=== PATIENT | female | born 1935 | race Caucasian/White ===

== ENCOUNTER 2017-04-04 17:58 | Inpatient (IN) | payer MEDICARE, MEDICAID ==
[~2017-04-04] VITALS: Ht 160 cm; Wt 63.2 kg
[2017-04-04] MEDS ORDERED: ONDANSETRON 4 MG/2 ML (SDV) Z0FRAN IVP PRN (18:15)
[2017-04-04] MEDS ORDERED: ACETAMINOPHEN 500 MG TAB (TYLENOL) PO PRN (18:15)
[2017-04-04] MEDS ORDERED: fentaNYL INJECTION 100 MCG/2 ML AMP IVP PRN (18:15)
[2017-04-04] MEDS ORDERED: ALPRAZolam 0.25 MG (XANAX) TAB PO PRN (18:15)
[2017-04-04 20:19] VITALS: BP 134/60
[2017-04-04 21:26] LABS: BASOPHILS % (AUTO) 0 % (0-10); EOSINOPHILS # (AUTO) 0.1 10^3/uL (0.0-0.3); EOSINOPHILS % (AUTO) 1 % (0-10); LYMPHOCYTES # (AUTO) 1.3 X 10^3 (1.0-4.0); LYMPHOCYTES % (AUTO) 15 % (12-44); MEAN CORPUSCULAR HEMOGLOBIN 29 PG (25-34); MEAN CORPUSCULAR HGB CONC 33 G/DL (32-36); MEAN CORPUSCULAR VOLUME 89 FL (80-99); MEAN PLATELET VOLUME 8.6 FL (7.4-10.4); MONOCYTES # (AUTO) 0.8 X 10^3 (0.0-1.0); MONOCYTES % (AUTO) 9 % (0-12); NEUTROPHILS # (AUTO) 6.6 X 10^3 (1.8-7.8); NEUTROPHILS % (AUTO) 75 % (42-75); PLATELET COUNT 332 10^3/uL (130-400); RED BLOOD COUNT 4.03 10^6/uL (4.35-5.85); WHITE BLOOD COUNT 8.8 10^3/uL (4.3-11.0)
--- NOTE | 2017-04-04 21:36 | Consultation ---
History of Present Illness History of Present Illness Patient Consulted On(satish/time) 04/04/17 21:31 Date Seen by Provider: Apr 04, 2017 Time Seen by Provider: 21:31 Reason for Visit: left hip pain History of Present Illness This 81 year old female tripped over a speaker cord at home and fell on the left hip about noon today. She was seen at [facility] and transferred to Dr. Reyes. She was insistent about not having surgery but the nurse practitioner who saw her convinced her to come here for orthopaedic consultation. She denies any other injury. Allergies and Home Medications Allergies Coded Allergies: No Allergy Information Available (Unverified , 04/04/17) Past Jfefyxf-Mglriw-Ezlswo Hx Patient Social History Recent Foreign Travel: No Contact w/Someone Who Travel: No Review of Systems-General Constitutional: no symptoms reported EENTM: no symptoms reported Respiratory: no symptoms reported Cardiovascular: no symptoms reported Gastrointestinal: no symptoms reported Genitourinary: no symptoms reported Musculoskeletal: see HPI Skin: no symptoms reported Psychiatric/Neurological: No Symptoms Reported Assessment/Plan Assessment/Plan Admission Diagnosis/Plan Left impacted femoral neck fracture- I recommended surgery and discussed that usually if the fracture is neglected it will displace and require a hip replacement. She is agreeable to cannulated screw fixation and we will proceed with ORIF of the left hip with cannulated screws in the AM. Results/Procedures Lab Laboratory Tests 04/04/17 21:16 Radiology The x-ray and CT from [place] on a disc show an impacted femoral neck fracture on the left Clinical Quality Measures DVT/VTE Risk/Contraindication: Contraindications-Pharm: Other *list below* Other: surgery planned BESSY SWAIN MD Apr 04, 2017 21:36
[2017-04-04 21:41] LABS: ALANINE AMINOTRANSFERASE 17 U/L (0-55); ALBUMIN 3.7 GM/DL (3.2-4.5); ANION GAP 9 MMOL/L (5-14); ASPARTATE AMINO TRANSFERASE 21 U/L (5-34); BILIRUBIN,TOTAL 0.6 MG/DL (0.1-1.0); BLOOD UREA NITROGEN 13 MG/DL (7-18); BUN/CREATININE RATIO 22; CALCIUM 8.6 MG/DL (8.5-10.1); CARBON DIOXIDE 23 MMOL/L (21-32); CHLORIDE 100 MMOL/L (98-107); GFR ESTIMATED > 60; GLUCOSE 106 MG/DL (70-105); SODIUM 132 MMOL/L (135-145)
[2017-04-04] MEDS: NS IV 1000 ML 1,000 ML IV SCH (21:46)
[2017-04-04] MEDS: HYDROcodone/APAP 5 MG/325 MG (LORTAB) TAB PO PRN (21:50)
[2017-04-05 03:07] VITALS: BP 113/71
[2017-04-05 06:27] LABS: BASOPHILS % (AUTO) 1 % (0-10); EOSINOPHILS # (AUTO) 0.3 10^3/uL (0.0-0.3); EOSINOPHILS % (AUTO) 5 % (0-10); LYMPHOCYTES # (AUTO) 1.6 X 10^3 (1.0-4.0); LYMPHOCYTES % (AUTO) 25 % (12-44); MEAN CORPUSCULAR HEMOGLOBIN 29 PG (25-34); MEAN CORPUSCULAR HGB CONC 32 G/DL (32-36); MEAN CORPUSCULAR VOLUME 90 FL (80-99); MEAN PLATELET VOLUME 9.2 FL (7.4-10.4); MONOCYTES # (AUTO) 0.9 X 10^3 (0.0-1.0); MONOCYTES % (AUTO) 14 % (0-12); NEUTROPHILS # (AUTO) 3.6 X 10^3 (1.8-7.8); NEUTROPHILS % (AUTO) 56 % (42-75); PLATELET COUNT 299 10^3/uL (130-400); RED BLOOD COUNT 3.91 10^6/uL (4.35-5.85); RED CELL DISTRIBUTION WIDTH 13.2 % (10.0-14.5); WHITE BLOOD COUNT 6.5 10^3/uL (4.3-11.0)
[2017-04-05 06:52] LABS: ALANINE AMINOTRANSFERASE 17 U/L (0-55); ALBUMIN 3.5 GM/DL (3.2-4.5); ANION GAP 11 MMOL/L (5-14); ASPARTATE AMINO TRANSFERASE 19 U/L (5-34); BILIRUBIN,TOTAL 0.8 MG/DL (0.1-1.0); BLOOD UREA NITROGEN 12 MG/DL (7-18); BUN/CREATININE RATIO 20; CALCIUM 8.5 MG/DL (8.5-10.1); CARBON DIOXIDE 20 MMOL/L (21-32); CHLORIDE 101 MMOL/L (98-107); CREATININE SERUM 0.59 MG/DL (0.60-1.30); GFR ESTIMATED > 60; GLUCOSE 95 MG/DL (70-105); POTASSIUM 3.9 MMOL/L (3.6-5.0); SODIUM 132 MMOL/L (135-145); TOTAL PROTEIN 6.6 GM/DL (6.4-8.2)
[2017-04-05] MEDS: NS IV 1000 ML 1,000 ML IV SCH ×3 (08:16→20:18)
[2017-04-05] MEDS ORDERED: MIDAZOLAM 2 MG/2 ML (VERSED) VIAL ONE (08:24)
[2017-04-05 09:00] VITALS: BP 137/60
[2017-04-05] MEDS ORDERED: PROPOFOL INJECTION 50 ML IV ONE (09:42)
[2017-04-05] MEDS ORDERED: LACTATED RINGERS 1,000 ML IV ONE (11:50)
[2017-04-05] MEDS ORDERED: BUPIVACAINE 0.5% 30 ML (SENSORCAINE) VIAL ONE (11:52)
[2017-04-05 12:00] VITALS: BP 110/53
[2017-04-05] MEDS ORDERED: morphine INJ 4 MG/ML 1 ML (VIAL/SYRINGE) IV PRN (12:00)
--- NOTE | 2017-04-05 12:12 | History & Physical-Hospitalist ---
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 Antony today. Currently she is complaining that is taking too long for surgery and she is only taking one half of a pain pill for pain since she doesn't want to take too much. Her family is at the bedside and 2 of her 11 children are updated on the plan. Source: patient, RN/MD Exam Limitations: no limitations Date Seen 04/05/17 Time Seen by Provider: 10:00 Attending Physician Bernadette Reyes DO PCP Referring Physician Date of Admission Apr 04, 2017 at 20:47 Home Medications & Allergies Home Medications Reviewed patient Home Medication Reconciliation Form Allergies Allergies Coded Allergies No Allergy Information Available (Unverified04/04/17) Past Wusaipf-Zurwib-Fvrdvl Hx Patient Social History Marrital Status: Alcohol Use: Denies Use Recreational Drug Use: No Smoking Status: Never a Smoker Physical Abuse Screen: No Sexual Abuse: No Recent Foreign Travel: No Contact w/other who traveled: No Recent Hopitalizations: No Recent Infectious Disease Expo: No Seasonal Allergies Seasonal Allergies: No Surgeries HX Surgeries: No Respiratory Hx Respiratory Disorders: No Cardiovascular Hx Cardiovascular Disorders: No Neurological Hx Neurological Disorders: No Reproductive System : No Genitourinary Hx Genitourinary Disorders: No Gastrointestinal Hx Gastrointestinal Disorders: No Musculoskeletal Hx Musculoskeletal Disorders: No Endocrine Hx Endocrine Disorders: No HEENT HX ENT Disorders: No Loss of Vision: Denies Cancer Hx Cancer: No Psychosocial Hx Psychiatric Problems: No Integumentary HX Skin/Integumentary Disorder: No Blood Transfusions Hx Blood Disorders: No Reviewed Nursing Assessment Reviewed/Agree w Nursing PMH: Yes Review of Systems Constitutional: see HPI EENTM: no symptoms reported Respiratory: no symptoms reported Cardiovascular: no symptoms reported Gastrointestinal: no symptoms reported Genitourinary: no symptoms reported Musculoskeletal: joint pain Skin: no symptoms reported Psychiatric/Neurological: No Symptoms Reported All Other Systems Reviewed Negative Unless Noted: Yes Physical Exam Physical Exam Vital Signs Vital Sign - Last 12Hours 04/04/17 20:19 Temp 98.7 Pulse 93 Resp 20 B/P (MAP) 134/60 Pulse Ox 96 O2 Delivery Room Air Capillary Refill : Less Than 3 Seconds General Appearance: No Apparent Distress, WD/WN Eyes: Bilateral Eye Normal Inspection, Bilateral Eye PERRL HEENT: PERRL/EOMI, Normal ENT Inspection, Pharynx Normal Neck: Full Range of Motion, Normal Inspection, Non Tender, Supple Respiratory: Chest Non Tender, Lungs Clear, Normal Breath Sounds, No Accessory Muscle Use, No Respiratory Distress Cardiovascular: Regular Rate, Rhythm, No Edema, No Gallop, No JVD, No Murmur, Normal Peripheral Pulses Gastrointestinal: Normal Bowel Sounds, No Organomegaly, No Pulsatile Mass, Non Tender, Soft Back: Normal Inspection, No CVA Tenderness, No Vertebral Tenderness Extremity: Normal Capillary Refill, Normal Inspection, Normal Range of Motion, Non Tender, No Calf Tenderness, No Pedal Edema Neurologic/Psychiatric: Alert, Oriented x3, No Motor/Sensory Deficits, Normal Mood/Affect Skin: Normal Color, Warm/Dry Lymphatic: No Adenopathy Results Results/Procedures Lab Laboratory Tests 04/04/17 21:16 04/05/17 05:10 Assessment/Plan Admission Diagnosis Assessment: Acute left hip fracture sustained in fall at home Preop hyponatremia Assessment and Plan Plan: Proceed with surgical repair since benefits outweigh risks Clinical Quality Measures DVT/VTE Risk/Contraindication: Risk Factor Score Per Nursin RFS Level Per Nursing on Admit: 2=Moderate Contraindications-Pharm: Other *list below* Other: surgery planned BERNADETTE REYES DO Apr 05, 2017 12:12
[2017-04-05] MEDS ORDERED: CLINDAMYCIN 600 MG/4ML (CLEOCIN) VIAL ONE (12:23)
[2017-04-05] MEDS ORDERED: PHENYLEPHRINE 100 MCG/ML 10 ML (ANESTHESIA) SYR ONE (12:40)
--- NOTE | 2017-04-05 12:53 | Progress Note-Post Operative ---
Post-Operative Progess Note Surgeon (s)/Molded Goods Controls Operator (s) Surgeon BESSY SWAIN MD Molded Goods Controls Operator: FRANCIA BARKLEY PA-C Pre-Operative Diagnosis LEFT IMPACTED FEMORAL NECK FRACTURE Post-Operative Diagnosis SAME Procedure & Operative Findings Date of Procedure 04/05/17 Procedure Performed/Findings CANNULATED SCREW FIXATION LEFT FEMORAL NECK FRACTURE Anesthesia Type SPINAL Estimated Blood Loss Estimated blood loss (mL): 5 ML Specimens/Packing Specimens Removed NONE Packing: NONE BESSY SWAIN MD Apr 05, 2017 12:53
--- NOTE | 2017-04-05 13:07 | Diagnostic Imaging Report ---
EXAMINATION: Left hip, fluoroscopic images. COMPARISON: None. HISTORY: 81-year-old female, left hip screw placement. FINDINGS: 33.9 seconds of fluoroscopic time was utilized for assistance with surgery. There are 3 fixation screws traversing the left intertrochanteric femur and left femoral neck extending into the femoral head. There are limitations of bone detail on fluoroscopic imaging. IMPRESSION: Fluoroscopy for assistance with surgery. Dictated by: Dictated on workstation # [id number]
[2017-04-05] MEDS: ENOXAPARIN 40 MG/0.4 ML (LOVENOX) SYR SC SCH (14:30)
[2017-04-05] MEDS ORDERED: LACTATED RINGERS 1,000 ML IV PRN (14:45)
[2017-04-05 16:51] VITALS: BP 123/68
[2017-04-05] MEDS: HYDROcodone/APAP 5 MG/325 MG (LORTAB) TAB PO PRN ×2 (18:36→22:34)
[2017-04-05 19:37] VITALS: BP 144/62
[2017-04-05] MEDS: CLINDAMYCIN INJECTION 600 MG in NS (IVPB) 50 ML IV SCH (22:11)
[2017-04-06] VITALS (9 sets, daily range): BP systolic 114–166; BP diastolic 58–71
[2017-04-06] MEDS: HYDROcodone/APAP 5 MG/325 MG (LORTAB) TAB PO PRN ×4 (06:11→21:39)
[2017-04-06] MEDS: CLINDAMYCIN INJECTION 600 MG in NS (IVPB) 50 ML IV SCH (06:11)
[2017-04-06] MEDS: NS IV 1000 ML 1,000 ML IV SCH (08:08)
--- NOTE | 2017-04-06 09:44 | Physical Therapy Evaluation ---
PT Evaluation-General Medical Diagnosis Admission Date Apr 04, 2017 at 20:47 Medical Diagnosis: left hip fracture Onset Date: Apr 04, 2017 Therapy Diagnosis Therapy Diagnosis: general debility Height/Weight Height (Feet): 5 Height (Inches): 3.00 Weight (Pounds): 139 Weight (Ounces): 5.0 Precautions Precautions/Isolations: Fall Prevention, Standard Precautions Weight Bear Status Weight Bearing Restriction: Touch Toe Bearing Location Restriction: L LE Referral Physician: Cassia Reason for Referral: Evaluation/Treatment Medical History Additional Medical History has not seen a physician in years Current History fall at home resulting in left hip fracture Reviewed History: Yes Social History Home: Single Level Current Living Status: Alone Entry Into Home: Level Entry has 11 children that will assist at home Prior/Core FIM Prior Level of Function Functional Hammond Measure 0=Not Assessed/NA 4=Minimal Assistance 1=Total Assistance 5=Supervision or Setup 2=Maximal Assistance 6=Modified Hammond 3=Moderate Assistance 7=Complete Hammond Bed Mobility: 7 Transfers (B,C,W/C) (FIM): 7 Gait: 7 PT Evaluation-Current Subjective Patient agrees to PT and OOB activity. Pain Numeric Pain Scale: 5-Moderate Pain Location: Left Location Body Site: Hip Pain Description: Acute Objective Patient Orientation: Normal For Age Problem Solving: Good Attachments: Bledsoe Catheter, IV ROM/Strength ROM Lower Extremities bilateral LE WNL Strenght Lower Extremities right LE 5/5 grossly left LE 3/5 grossly Integumentary/Posture Integumentary refer to nursing notes Bowel Incontinence: No Bladder Incontinence: Bledsoe Cath Posture WNL Neuromuscular (Tone, Coordination, Reflexes) grossly intact Sensory Vision: Functional Hearing: Functional Sensation Right Lower Extremit: Intact Sensation Left Lower Extremity: Intact Transfers Functional Hammond Measure 0=Not Assessed/NA 4=Minimal Assistance 1=Total Assistance 5=Supervision or Setup 2=Maximal Assistance 6=Modified Hammond 3=Moderate Assistance 7=Complete Hammond Transfers (B, C, W/C) (FIM): 5 Scootin Rollin Supine to/from Sit: 5 Sit to/from Stand: 5 bed t/f WC(FIM only if WC use): 5 TTWB left LE with use of FWW and turning toward recliner to sit Gait Mode of Locomotion: Walk Anticipated Mode of Locomotion: Walk Gait (FIM): 1 Distance (FIM): 1=up to 49 ft Distance: 5 steps Gait Level of Assist: 5 Gait Assistive Device: FWW Comments/Gait Description TTWB left LE Balance Sitting Static: Normal Sitting Dynamic: Normal Standing Static: Normal Standing Dynamic: Normal Assessment/Needs 81 y.o. female, will benefit from short term skilled to address functional mobility to safely return to home with family at maximum LOF. Rehab Potential: Good PT Printing Supervisor Goals Printing Supervisor Goals PT Printing Supervisor Goals Time Frame: Apr 10, 2017 Transfers (B,C,W/C) (FIM): 5 Gait (FIM): 1 Gait distance (FIM): 1=up to 49 ft Gait Level of Assist: 5 Gait Assistive Device: FWW PT Plan Treatment/Plan Treatment Plan: Continue Plan of Care Treatment Plan: Bed Mobility, Education, Functional Activity Genna, Functional Strength, Gait, Safety, Therapeutic Exercise, Transfers Treatment Duration: Apr 10, 2017 Frequency: Twice Daily Estimated Hrs Per Day: .5 hour per day Patient and/or Family Agrees t: Yes Safety Risks/Education Patient Education: Gait Training, Safety Issues Teaching Recipient: Patient Teaching Methods: Discussion Response to Teaching: Verbalize Understanding Discharge Recommendations Therapy D/C Recommendations: Home w/ Family Support Equpiment Recommendations-D/C: Front Wheeled Walker Time/GCodes Time In: 825 Time Out: 845 Total Billed Treatment Time: 20 Total Billed Treatment 1 visit EVMod 20 min NICK QUIÑONEZ PT Apr 06, 2017 09:44
[2017-04-06] MEDS ORDERED: MULT-878 PO ×2 (10:12)
[2017-04-06] MEDS ORDERED: ASPI325T32 PO (10:12)
--- NOTE | 2017-04-06 10:44 | Anesthesia-Regional Post-Op ---
Regional Patient Condition Mental Status: Alert, Oriented x3 Circulation: Same as Pre-Op Headache: Absent Sensation: Full Recovery Motor Block: Absent Post Op Complications Complications None Follow Up Care/Instructions Patient Instructions None needed. Anesthesia/Patient Condition Patient is doing well, no complaints, stable vital signs, no apparent adverse anesthesia problems. No complications reported per nursing. TIM ARRIETA CRNA Apr 06, 2017 10:44
--- NOTE | 2017-04-06 11:54 | OPERATIVE REPORT ---
PROCEDURE PHYSICIAN: BESSY SWAIN DATE OF PROCEDURE: 04/05/2017 PREOPERATAIVE DIAGNOSIS: Left impacted femoral neck fracture. POSTOPERATIVE DIAGNOSIS: Left impacted femoral neck fracture. PROCEDURE: Cannulated screw fixation left hip. SURGEON: Cassia ASSISTING: PAC. Jaren Cloth Grader surgeon duties: Patient positioning, retraction, use of internal fixation devices, wound closure, application sterile dressings. Use of drilling assistant is medically indicated. ANESTHESIA: Spinal. BLOOD LOSS: 5 mL. COMPLICATIONS: None. SPECIMENS: None. INDICATIONS: This lady fell yesterday and fractured the left hip. She has impacted fracture and comes in for cannulated screw fixation IMPLANT: Synthes 7.3 mm cannulated screws x3. PROCEDURE IN DETAIL: After informed consent, the patient was transported to the operating room. She was placed on the operating table in the supine position where spinal anesthetic was administered. She was positioned on the fracture table in the supine position with the pubis perineal post. The left foot in traction boot and the right leg in the leg newell. The C-arm was brought in. The reduction appeared to be satisfactory. The fracture is still impacted. The left hip was prepped with ChloraPrep and draped in the sterile fashion. A lateral incision was made over the lateral hip just distal to the greater trochanter and the IT band and vastus lateralis were opened in line with the skin and the vastus lateralis was slightly elevated from the femur laterally and distal to the greater trochanter. Three guide pins were drilled in a triangular pattern through the lateral cortex of the femur up the femoral neck and into the femoral head just short of the articular surface. This was confirmed on the C-arm AP and lateral views. The pins appeared to be in an appropriate position and were fairly parallel. They were measured and the appropriate length 7.3 mm cannulated screws were placed over all 3 pins obtaining good purchase. The pins were removed. Hardcopy AP and lateral views of the hip were taken confirming satisfactory reduction and placement of implants with no penetration of the articular surface. The wound was thoroughly irrigated. The fascia was closed with 0 Vicryl followed by running 2-0 Vicryl and larisa on the skin. Sterile dressing was applied. The patient was taken to the recovery room in stable condition. Job ID: [id number] Dictated Date: 04/05/2017 12:51:50 [employer] Fabric Impregnating Range Tender Date: 04/06/2017 11:46:10 / sherri
--- NOTE | 2017-04-06 13:22 | Progress Note (SOAP) ---
Subjective Date Seen by Provider: Apr 06, 2017 Time Seen by Provider: 07:25 Subjective/Events-last exam Mrs guzman is laying in bed trujillo x 4 with little pain. She is doing well. She denies new symptoms today. Review of Systems General: No Chills, No Night Sweats HEENT: No Head Aches, No Visual Changes Pulmonary: No Dyspnea, No Cough Cardiovascular: No: Chest Pain Gastrointestinal: No: Nausea, Vomiting Musculoskeletal: leg pain Neurological: No: Change in speech, Confusion, Numbness, Weakness Objective Exam Vital Signs Date Time Temp Pulse Resp B/P (MAP) Pulse Ox O2 Delivery O2 Flow Rate FiO2 04/06/17 11:08 97.0 04/06/17 08:00 97.0 73 20 114/58 95 Room Air 04/06/17 08:00 Room Air 04/06/17 04:00 97.1 80 16 145/66 95 Room Air 04/06/17 00:00 98.5 81 16 130/66 93 Room Air 04/05/17 20:00 Room Air 04/05/17 19:37 99.1 89 20 144/62 95 Room Air 04/05/17 17:08 4.00 04/05/17 16:51 98.0 80 20 123/68 100 Nasal Cannula 4.00 04/05/17 16:45 Nasal Cannula 3.00 I & O 04/06/17 07:00 Intake Total 2340 ml Output Total 2150 ml Balance 190 ml Capillary Refill : Less Than 3 Seconds General Appearance: No Apparent Distress, WD/WN Respiratory: No Accessory Muscle Use, No Respiratory Distress Cardiovascular: No Edema, Normal Peripheral Pulses Peripheral Pulses: 2+ Dorsalis Pedis (R), 2+ Left Dors-Pedis (L) Gastrointestinal: non tender, soft Extremity: Normal Capillary Refill, Normal Inspection Neurologic/Psychiatric: Alert, Oriented x3 Skin: Normal Color Results Lab Laboratory Tests 04/06/17 06:30: Hemoglobin 10.8L, Hematocrit 33L Assessment/Plan Assessment/Plan Assess & Plan/Chief Complaint Assessment: left femoral neck fracture s/p fixation with canulated screw Plan: non weight bearing to LLE dvt prophylaxis pain control Clinical Quality Measures DVT/VTE Risk/Contraindication: Risk Factor Score Per Nursin RFS Level Per Nursing on Admit: 2=Moderate Contraindications-Pharm: Other *list below* Other: surgery planned IMANI VAZQUEZ 24, 2017 13:22
[2017-04-06] MEDS: ENOXAPARIN 40 MG/0.4 ML (LOVENOX) SYR SC SCH (13:37)
--- NOTE | 2017-04-06 13:48 | Occupational Therapy Eval ---
OT Evaluation-General/PLF Medical Diagnosis Admission Date Apr 04, 2017 at 20:47 Medical Diagnosis: left hip fracture Onset Date: Apr 04, 2017 Therapy Diagnosis Therapy Diagnosis: decreased self care skills Height/Weight Height (Feet): 5 Height (Inches): 3.00 Weight (Pounds): 139 Weight (Ounces): 5.0 Precautions Precautions/Isolations: Fall Prevention, Standard Precautions Safety Interventions: None Weight Bear Status Weight Bearing Restriction: Touch Toe Bearing Location Restriction: L LE Referral Physician: Cassia Medical History Current History Pt had fall with left hip fracture. S/P ORIF Reviewed History: Yes Social History Home: Single Level Current Living Status: Alone Entry Into Home: Level Entry Pt states she lives alone, but has several children who live nearby. Pt states children will be staying with her and checking on her when she goes home. ADL-Prior Level of Function ADL PLOF Comments Pt reports being independent with ADLs and mobility prior to admission. Does not use any assistive devices for mobility. Pt does not drive. DME/Equipment: Tall Toilet, Tub/Shower DME/Equipment Comments Pt states she does not have a shower chair or bench, but states she will not be getting into the shower when she goes home. Pt not interested in DME for bathing at this time. Drive Self: No OT Current Status Subjective Pt in bed, agrees to treatment. Pt states she is not having any pain, but is tired. Pt states "I did a lot this morning. " Mental Status/Objective Attachments: Bledsoe Catheter, IV Current Glasses/Contacts: Yes (reading) Hearing Aids: No Dentures/Partials: Yes Hand Dominance: Right Upper Extremity ROM Grossly WFL Upper Extremity Coordination Intact Upper Extremity Strength Grossly 4/5 ADL-Treatment ADL-Current Pt supine to sit with minimal assistance for left LE. Pt sat EOB with good balance during UE assessment. Total assist required to don socks. Pt sit to stand with CGA and cues for weightbearing status. Pt able to take sidesteps to HOB with FWW. Pt declined further activity secondary to reports of fatigue from being up earlier today. Education provided regarding role of OT and plan of care. Pt states understanding of education and agrees with plan of care. Pt states "I think I will be fine when I go home." Sit to supine with assist for left LE. Pt in bed with needs met after session. Functional Glenn Measure 0=Not Assessed/NA 4=Minimal Assistance 1=Total Assistance 5=Supervision or Setup 2=Maximal Assistance 6=Modified Glenn 3=Moderate Assistance 7=Complete IndependenceIRFPAI Quality Coding Scale 6 Independent with activity with or without an assistive device 5 Patient requires set up or clean up by helper. Patient completes activity by themselves 4 Supervision or touching assist (CGA). [place] provide cues , steadying assist 3 The helper provides less than half the effort to complete the activity 2 The helper provides more than half the effort to complete the activity 1 Dependent. The helper does all the effort to complete an activity 7 Patient refused to complete or attempt activity 9 The patient did not perform the activity before the current illness or injury 88 Not attempted due to Medical conditions or safety concerns Education OT Patient Education: Rehab process Teaching Recipient: Patient Teaching Methods: Discussion Response to Teaching: Verbalize Understanding OT Short Term Goals Short Term Goals 1=Demonstrate adherence to instructed precautions during ADL tasks. 2=Patient will verbalize/demonstrate understanding of assistive devices/ modifications for ADL. 3=Patient will improve strength/tolerance for activity to enable patient to perform ADL's. OT Retirement Goals X Ray Technician Goals Time Frame: Apr 20, 2017 Eating (FIM): 6 Grooming(FIM): 6 Bathing(FIM): 5 Upper Body Dressing(FIM): 5 Lower Body Dressing(FIM): 5 Toileting(FIM): 6 Toilet/Commode Transfer(FIM): 6 Additional Goals: 1-Demonstrate ADL Tasks, 2-Verbalize Understanding, 3- ImproveStrength/Genna 1=Demonstrate adherence to instructed precautions during ADL tasks. 2=Patient will verbalize/demonstrate understanding of assistive devices/ modifications for ADL. 3=Patient will improve strength/tolerance for activity to enable patient to perform ADL's. OT Education/Plan Problem List/Assessment Assessment: Decreased Activ Tolerance, Decreased UE Strength, Dependent Transfers, Impaired Self-Care Skills Pt admitted with left hip fracture, s/p surgical intervention. Pt to benefit from skilled OT intervention for ADL training, transfers, strengthening, adaptive equipment education as needed, and home safety education to maximize level of function and allow safe return home with family support. Discharge Recommendations Plan/Recommendations: Continue POC Treatment Plan/Plan of Care Treatment,Training & Education: Yes Patient would benefit from OT for education, treatment and training to promote independence in ADL's, mobility, safety and/or upper extremity function for ADL' s. Plan of Care: ADL Retraining, Functional Mobility, UE Funct Exercise/Act Treatment Duration: Apr 20, 2017 Frequency: 5 times per week Estimated Hrs Per Day: .5 hour per day Agreement: Yes Rehab Potential: Good Time/GCodes Start Time: 13:11 Stop Time: 13:34 Total Time Billed (hr/min): 23 Billed Treatment Time 1 visit, KEGAAN(23minutes) LUCIA HANLEY OT Apr 06, 2017 13:48
--- NOTE | 2017-04-06 14:01 | Progress Note-Hospitalist ---
Standard Progress Note Progress Notes/Assess & Plan Date Seen 04/06/17 Time Seen by Provider: 13:56 Diagnosis Assessment: Acute left hip fracture sustained in fall at home Preop hyponatremia Assess & Plan/Chief Complaint The patient is an 81-year-old white female who reports she was hurrying to get to her garden at home. She tripped and fell suffering a left hip fracture. That was repaired by Dr. Antony on 04/05. She is very dedicated to the proposition of going directly from inpatient. She states that she has 11 children. They are able to participate in her care. A daughter lives with her and a son would be available in the evening after getting off from work. She has just started physical therapy. She would be willing to do home health physical therapy. Physical exam: We have a spunky elderly female. Lungs are clear to auscultation. CV is regular with a grade 2 systolic murmur heard at the right second intercostal space and down the left sternal border. Impression: Left hip fracture Day 1 postop. 2.modest hyponatremia. Plan: Physical therapy. Discharge planning Labs Laboratory Tests 04/04/17 21:16 04/05/17 05:10 04/06/17 06:30 CINDY ALEMAN MD Apr 06, 2017 14:01
--- NOTE | 2017-04-06 14:45 | Physical Therapy Daily Note ---
PT Daily Note-Current Subjective Patient agrees to PT. No c/o at this time. Pain Numeric Pain Scale: 5-Moderate Pain Location: Left Location Body Site: Hip Pain Description: Acute Mental Status Patient Orientation: Normal For Age Attachments: Bledsoe Catheter, IV Transfers Functional [place] Measure 0=Not Assessed/NA 4=Minimal Assistance 1=Total Assistance 5=Supervision or Setup 2=Maximal Assistance 6=Modified [place] 3=Moderate Assistance 7=Complete IndependenceIRFPAI Quality Coding Scale 6 Independent with activity with or without an assistive device 5 Patient requires set up or clean up by helper. Patient completes activity by themselves 4 Supervision or touching assist (CGA). [place] provide cues , steadying assist 3 The helper provides less than half the effort to complete the activity 2 The helper provides more than half the effort to complete the activity 1 Dependent. The helper does all the effort to complete an activity 7 Patient refused to complete or attempt activity 9 The patient did not perform the activity before the current illness or injury 88 Not attempted due to Medical conditions or safety concerns Transfers (B, C, W/C) (FIM): 5 Scootin Rollin Supine to/from Sit: 5 Sit to/from Stand: 5 Weight Bearing Weight Bearing Restriction: Touch Toe Bearing Location Restriction: L LE Gait Training Gait (FIM): 1 Distance (FIM): 1=up to 49 ft Distance: 30' Gait Level of Assist: 5 Gait Persons Needed: 1 Gait Assistive Device: FWW Patient is able to maintain TTWB left LE without difficulty Exercises Supine Ex: Ankle pumps, Quad Set, Heel Slides Supine Reps: 10 Seated Therapy Exercises: Ankle pumps, Long arc quads Seated Reps: 10 Assessment Patient progressing with exercise and ambulation. Patient will dismiss to home with family this week. PT to continue to address goals. PT Assisted Goals Sales Enablement Analyst Goals PT Sales Enablement Analyst Goals Time Frame: Apr 10, 2017 Transfers (B,C,W/C) (FIM): 5 Gait (FIM): 1 Gait distance (FIM): 1=up to 49 ft Gait Level of Assist: 5 Gait Assistive Device: FWW PT Plan Treatment/Plan Treatment Plan: Continue Plan of Care Treatment Plan: Bed Mobility, Education, Functional Activity Genna, Functional Strength, Gait, Safety, Therapeutic Exercise, Transfers Treatment Duration: Apr 10, 2017 Frequency: Twice Daily Estimated Hrs Per Day: .5 hour per day Patient and/or Family Agrees t: Yes Time/GCodes Time In: 1410 Time Out: 1433 Total Billed Treatment Time: 23 Total Billed Treatment 1 visit GT 8 min EX 15 min NCIK QUIÑONEZ PT Apr 06, 2017 14:45
[2017-04-07 03:10] VITALS: BP 121/64
[2017-04-07] MEDS: HYDROcodone/APAP 5 MG/325 MG (LORTAB) TAB PO PRN ×2 (04:34→11:30)
[2017-04-07 08:00] VITALS: BP 141/66
--- NOTE | 2017-04-07 09:23 | Physical Therapy Daily Note ---
PT Daily Note-Current Subjective Patient agrees to PT. Pain Numeric Pain Scale: 5-Moderate Pain Location: Left Location Body Site: Hip Pain Description: Acute Mental Status Patient Orientation: Normal For Age Attachments: Bledsoe Catheter Transfers Functional [place] Measure 0=Not Assessed/NA 4=Minimal Assistance 1=Total Assistance 5=Supervision or Setup 2=Maximal Assistance 6=Modified [place] 3=Moderate Assistance 7=Complete IndependenceIRFPAI Quality Coding Scale 6 Independent with activity with or without an assistive device 5 Patient requires set up or clean up by helper. Patient completes activity by themselves 4 Supervision or touching assist (CGA). [place] provide cues , steadying assist 3 The helper provides less than half the effort to complete the activity 2 The helper provides more than half the effort to complete the activity 1 Dependent. The helper does all the effort to complete an activity 7 Patient refused to complete or attempt activity 9 The patient did not perform the activity before the current illness or injury 88 Not attempted due to Medical conditions or safety concerns Transfers (B, C, W/C) (FIM): 5 Scootin Rollin Supine to/from Sit: 5 Sit to/from Stand: 5 Weight Bearing Weight Bearing Restriction: Touch Toe Bearing Location Restriction: L LE Gait Training Gait (FIM): 1 Distance (FIM): 1=up to 49 ft Distance: 45' Gait Level of Assist: 5 Gait Assistive Device: FWW steady, step to gait sequence Exercises Supine Ex: Ankle pumps, Quad Set, Heel Slides Supine Reps: 10 Seated Therapy Exercises: Ankle pumps, Long arc quads Seated Reps: 15 Assessment Current Status: Excellent Progress Patient tolerated treatment well and is up in recliner with needs met. Patient performs exercises independently PRN and is highly motivated with progress. Plan dismissal to home with family this week. PT Snf Goals Snf Goals PT Snf Goals Time Frame: Apr 10, 2017 Transfers (B,C,W/C) (FIM): 5 Gait (FIM): 1 Gait distance (FIM): 1=up to 49 ft Gait Level of Assist: 5 Gait Assistive Device: FWW PT Plan Treatment/Plan Treatment Plan: Continue Plan of Care Treatment Plan: Bed Mobility, Education, Functional Activity Genna, Functional Strength, Gait, Safety, Therapeutic Exercise, Transfers Treatment Duration: Apr 10, 2017 Frequency: Twice Daily Estimated Hrs Per Day: .5 hour per day Patient and/or Family Agrees t: Yes Time/GCodes Time In: 846 Time Out: 909 Total Billed Treatment Time: 23 Total Billed Treatment 1 visit GT 15 min EX 8 min NICK QUIÑONEZ PT Apr 07, 2017 09:23
--- NOTE | 2017-04-07 11:33 | Progress Note-Hospitalist ---
Standard Progress Note Progress Notes/Assess & Plan Date Seen 04/07/17 Time Seen by Provider: 11:29 Diagnosis Assessment: Acute left hip fracture sustained in fall at home Preop hyponatremia Assess & Plan/Chief Complaint The patient was sitting up on the side of the bed when I came into the room. She reports feeling generally well. Physical therapy states that she is doing extremely well. Yesterday she was most enthusiastic about the prospect of going home today. Today she is much less confident her children all work and there would be hours of time in which no one would be home with her. Accordingly we will evaluate are other possibilities. Physical exam: The patient is bright and alert. Lungs are clear to auscultation. CV is regular without murmur. Extremities show no pedal edema. Impression: Left hip fracture postoperative day 3. Plan: Explore options for continuing PT. Labs Laboratory Tests 04/06/17 06:30 CINDY ALEMAN MD Apr 07, 2017 11:33
--- NOTE | 2017-04-07 12:52 | Progress Note-Standard ---
Standard Progress Note Progress Notes/Assess & Plan Date Seen by Provider: Apr 07, 2017 Time Seen by Provider: 12:50 Progress/Assessment & Plan Postop day 2 cannulated screws left hip Doing well Pain is well controlled. She is getting up with PT and doing well with that. Exam-- minimal drainage. Incision intact Diagnosis: left femoral neck fracture Plan: Continue PT, and either DC to home when better or consider rehab I will sign off and follow up in the office in 2 weeks for staple removal Final Diagnosis Left femoral neck fracture BESSY SWAIN MD Apr 07, 2017 12:52
[2017-04-09] MEDS ORDERED: HYDR-3812 PO ×2 (11:49)
--- NOTE | 2017-04-29 13:56 | Discharge Summary-Hospitalist ---
Diagnosis/Chief Complaint Date of Admission Apr 04, 2017 at 20:47 Date of Discharge Apr 07, 2017 at 12:50 Discharge Date: Apr 07, 2017 Admission Diagnosis Assessment: Acute left hip fracture sustained in fall at home Preop hyponatremia Discharge Diagnosis 1.fracture left hip with operative repair. 2.hyponatremia on admission, corrected Discharge Summary Discharge Physical Examination Allergies: Coded Allergies: No Allergy Information Available (Unverified , 04/04/17) Hospital Course The patient is an 81-year-old white female who fell at her home. After she arrived at the [place] emergency room she was found to have a left hip fracture and was transferred here for operative repair. She was also noted to have hyponatremia. She successfully completed repair on 04/05. Her hospital course was slow but satisfactory. In order that she might be reasonably likely of success at home, and she insisted on going home, she was transferred to swing bed for several more days of physical therapy. Labs (last 24 hrs) Microbiology 04/05/17 MRSA Screen - Final, Complete MRSA not isolated Discharge Home Medications: Active Scripts Active Hydrocodon -Acetaminophen 5-325 (Hydrocodone/Acetaminophen) 1 Each Tablet 1 Tab PO Q4H PRN Reported Aspirin EC (Aspirin) 325 Mg Tablet. 325 Mg PO DAILY PRN Instructions to patient/family Please see electonic discharge instructions given to patient. Clinical Quality Measures DVT/VTE Risk/Contraindication: Risk Factor Score Per Nursin RFS Level Per Nursing on Admit: 2=Moderate Contraindications-Pharm: Other *list below* Other: surgery planned CINDY ALEMAN MD Apr 29, 2017 13:56
== END 2017-04-07 12:50 | disposition swing bed (61) | DRG 481 ==
LOC: 4TH 20:47
PROVIDERS: ADMIT Internal Medicine; ATTEND Internal Medicine
PROC: 0QS704Z Reposition Left Upper Femur with Internal Fixation Device, Open Approach (ICD-10-PCS; principal; 2017-04-05 12:05)
DX: S72.002A Fracture of unspecified part of neck of left femur, initial encounter for closed fracture (principal); E87.1 Hypo-osmolality and hyponatremia; W22.8XXA Striking against or struck by other objects, initial encounter; Y92.019 Unspecified place in single-family (private) house as the place of occurrence of the external cause
CPT/HCPCS: 36415; 80053; 85014; 85018; 85025; 87081; 94664

== ENCOUNTER 2017-04-07 12:40 | Inpatient (IN) | payer MEDICARE ==
[~2017-04-07] VITALS: Ht 160 cm; Wt 63.2 kg
[~2017-04-07 12:40] MED LIST: ASPI325T32 PO; MULT-878 PO
[2017-04-07 12:55] VITALS: BP 125/67
[2017-04-07] MEDS ORDERED: ALPRAZolam 0.25 MG (XANAX) TAB PO PRN (13:00)
[2017-04-07] MEDS ORDERED: ACETAMINOPHEN 500 MG TAB (TYLENOL) PO PRN (13:00)
[2017-04-07] MEDS: ENOXAPARIN 40 MG/0.4 ML (LOVENOX) SYR SC SCH (13:45)
--- NOTE | 2017-04-07 14:15 | Physical Therapy Evaluation ---
PT Evaluation-General Medical Diagnosis Admission Date Apr 07, 2017 at 12:51 Medical Diagnosis: left hip fracture Onset Date: Apr 04, 2017 Therapy Diagnosis Therapy Diagnosis: generalized weakness/debility Height/Weight Height (Feet): 5 Height (Inches): 3.00 Weight (Pounds): 139 Weight (Ounces): 5.0 Weight Bear Status Weight Bearing Restriction: Touch Toe Bearing Location Restriction: L LE Referral Physician: Mattie Reason for Referral: Evaluation/Treatment Medical History Additional Medical History has not been to a physician for years. Current History SWB status s/p fall at home Reviewed History: Yes Social History Home: Single Level Current Living Status: Alone Entry Into Home: Level Entry Prior/Core FIM Prior Level of Function Functional [place] Measure 0=Not Assessed/NA 4=Minimal Assistance 1=Total Assistance 5=Supervision or Setup 2=Maximal Assistance 6=Modified [place] 3=Moderate Assistance 7=Complete [place] Bed Mobility: 7 Transfers (B,C,W/C) (FIM): 7 Gait: 7 PT Evaluation-Current Subjective Patient is very agreeable to participate with PT. Pain Numeric Pain Scale: 5-Moderate Pain Location: Left Location Body Site: Hip Pain Description: Acute Pt/Family Goals return to home with family support Objective Patient Orientation: Normal For Age Problem Solving: Good ROM/Strength ROM Lower Extremities bilateral LE WNL Strenght Lower Extremities bilateral LE WNL Integumentary/Posture Integumentary refer to nursing notes Bowel Incontinence: No Bladder Incontinence: No Posture WNL Neuromuscular (Tone, Coordination, Reflexes) grossly intact Sensory Vision: Functional Hearing: Functional Sensation Right Lower Extremit: Intact Sensation Left Lower Extremity: Intact Transfers Functional [place] Measure 0=Not Assessed/NA 4=Minimal Assistance 1=Total Assistance 5=Supervision or Setup 2=Maximal Assistance 6=Modified [place] 3=Moderate Assistance 7=Complete [place] Transfers (B, C, W/C) (FIM): 5 Scootin Rollin Supine to/from Sit: 5 Sit to/from Stand: 5 Sit to Lying (QC): 5 Lying to Sitting/Side of Bed(Q: 5 Sit to Stand (QC): 5 Chair/Rqi-gz-Jyajj Xfer(QC): 5 Gait Does the Patient Walk?: Yes Mode of Locomotion: Walk Anticipated Mode of Locomotion: Walk Gait (FIM): 5 Distance (FIM): 3=150 ft Distance: 150' Walk 50 ft with 2 Turns(QC): 5 Walk 150 ft (QC): 5 Gait Level of Assist: 5 Gait Assistive Device: FWW Comments/Gait Description Patient is able to comply with TTWB left LE with out difficulty Wheelchair Training Does the Pt Use a Wheelchair?: No Balance Sitting Static: Normal Sitting Dynamic: Normal Standing Static: Normal Standing Dynamic: Normal Treatment bilateral LE exercises in supine and sit 10 reps each AP, QS, Abd/add; LAQ to increase strength and mobility to return to home safely Assessment/Needs 81 y.o. female, will benefit from short term skilled PT to address functional strength and mobility to improve current LOF and to safely return to home with family and home health intervention at maximum LOF. Rehab Potential: Good PT Senior Care Goals Rotary Furnace Tender Goals PT Rotary Furnace Tender Goals Time Frame: Apr 14, 2017 Transfers (B,C,W/C) (FIM): 6 Sit to Lying (QC): 5 Lying-Sitting on Side/Bed(QC): 5 Sit to Stand (QC): 5 Rollin Chair/Stp-lr-Tyuxj Xfer(QC): 5 Does the Patient Walk: Yes Gait (FIM): 6 Gait distance (FIM): 3=150 ft Walk 50ft with 2 Turns (QC): 5 Walk 150 ft (QC): 5 Gait Level of Assist: 6 Gait Assistive Device: FWW PT Plan Treatment/Plan Treatment Plan: Continue Plan of Care Treatment Plan: Bed Mobility, Education, Functional Activity Genna, Functional Strength, Gait, Safety, Therapeutic Exercise, Transfers Treatment Duration: Apr 14, 2017 Frequency: Twice Daily (M- and 1 time on Thursday) Estimated Hrs Per Day: .5 hour per day Patient and/or Family Agrees t: Yes Safety Risks/Education Patient Education: Safety Issues Teaching Recipient: Patient Teaching Methods: Discussion Response to Teaching: Verbalize Understanding Discharge Recommendations Therapy D/C Recommendations: Home w/ Family Support, Physical Therapy Home Care Time/GCodes Time In: 1315 Time Out: 1340 Total Billed Treatment Time: 25 Total Billed Treatment 1 visit EVLowC 10 min EX 15 min NICK QUIÑONEZ PT Apr 07, 2017 14:15
--- NOTE | 2017-04-07 15:26 | Occupational Therapy Eval ---
OT Evaluation-General/PLF Medical Diagnosis Admission Date Apr 07, 2017 at 12:51 Medical Diagnosis: left hip fracture Onset Date: Apr 04, 2017 Therapy Diagnosis Therapy Diagnosis: decr self care skills Height/Weight Height (Feet): 5 Height (Inches): 3.00 Weight (Pounds): 139 Weight (Ounces): 5.0 Precautions Precautions/Isolations: Fall Prevention, Standard Precautions Weight Bear Status Weight Bearing Restriction: Touch Toe Bearing Location Restriction: L LEONARDO Referral Physician: Mattie Referral Reason: Evaluation/Treatment Medical History Additional Medical History Pt has not seen a physician in many years. Current History Caught foot in speaker wire at home and fell. L hip fx, with ORIF on 04-05-17 Reviewed History: Yes Social History Home: Single Level Current Living Status: Alone Entry Into Home: Level Entry ADL-Prior Level of Function ADL PLOF Comments Pt reported that she had been able to manage all of her basic self care needs. She has several children that live nearby. Children will be staying with her after discharge DME/Equipment: Tall Toilet, Tub/Shower Pt stated that she will not be getting in and out of the tub for a long time. 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 Drive Self: No OT Current Status Subjective Pt seen in room, up in bed, agreeable to OT but not to getting up, Pain reported 0/10 Appearance Alert, cooperative Mental Status/Objective Attachments: IV Current Glasses/Contacts: Yes Hearing Aids: No Dentures/Partials: Yes Hand Dominance: Right Upper Extremity ROM Grossly WFL bilat Upper Extremity Strength grossly 4/5 bilat ADL-Treatment ADL-Current Pt reported she had a shower this morning but was not able to state how much help she had Functional [place] Measure 0=Not Assessed/NA 4=Minimal Assistance 1=Total Assistance 5=Supervision or Setup 2=Maximal Assistance 6=Modified [place] 3=Moderate Assistance 7=Complete IndependenceIRFPAI Quality Coding Scale 6 Independent with activity with or without an assistive device 5 Patient requires set up or clean up by helper. Patient completes activity by themselves 4 Supervision or touching assist (CGA). [place] provide cues , steadying assist 3 The helper provides less than half the effort to complete the activity 2 The helper provides more than half the effort to complete the activity 1 Dependent. The helper does all the effort to complete an activity 7 Patient refused to complete or attempt activity 9 The patient did not perform the activity before the current illness or injury 88 Not attempted due to Medical conditions or safety concerns Eating (FIM): 6 (per pt report) Eating (QC): 6 (per patient report) Grooming (FIM): 5 (SBA at sink to rinse dentures) Oral Hygiene (QC): 4 (SBA at sink to rinse dentures) Toileting (FIM): 5 (per pt report. "I don't take myself to the bathroom") Toileting Hygiene (QC): 4 (SBA per pt report) Transfers (B, C, W/C) (FIM): 5 (per PT eval) Toilet/Commode Transfer (FIM): 5 (SBA, per pt report. tall toilet, grab bar) Toilet Transfer (QC): 4 (SBA per pt report) Education OT Patient Education: Purpose of tx/functional activities, Rehab process, Use of adapted equipment Teaching Recipient: Patient Teaching Methods: Discussion Response to Teaching: Verbalize Understanding OT Advertising Campaign Manager Goals Skilled Nursing Goals Time Frame: Apr 14, 2017 Eating (FIM): 6 Eating (QC): 6 Groomin Oral Hygiene (QC): 6 Upper Body Dressing(FIM): 5 Lower Body Dressing(FIM): 5 Toileting(FIM): 6 Toileting Hygiene (QC): 6 Toilet/Commode Transfer(FIM): 6 Toilet/Commode Transfer (QC): 6 Additional Goals: 1-Demonstrate ADL Tasks, 2-Verbalize Understanding, 3- ImproveStrength/Genna 1=Demonstrate adherence to instructed precautions during ADL tasks. 2=Patient will verbalize/demonstrate understanding of assistive devices/ modifications for ADL. 3=Patient will improve strength/tolerance for activity to enable patient to perform ADL's. OT Education/Plan Problem List/Assessment Assessment: Decreased UE Strength, Impaired Self-Care Skills Pt would benefit from skilled OT to increase her independence in basic self care to allow her to safely return to her home, to live with family support Discharge Recommendations Plan/Recommendations: Continue POC Therapy D/C Recommendations: Occupational Therapy Home Care Target Placement Pt stated that she is going home on Thursday Treatment Plan/Plan of Care Treatment,Training & Education: Yes Patient would benefit from OT for education, treatment and training to promote independence in ADL's, mobility, safety and/or upper extremity function for ADL' s. Plan of Care: ADL Retraining, UE Funct Exercise/Act Treatment Duration: Apr 14, 2017 Frequency: Daily Estimated Hrs Per Day: .5 hour per day Agreement: Yes Rehab Potential: Good Time/GCodes Start Time: 15:00 Stop Time: 15:15 Total Time Billed (hr/min): 15 Billed Treatment Time visit, 15 minutes evaluation low intensity VALENTIN GRIFFIN OT Apr 07, 2017 15:25
[2017-04-07 18:00] VITALS: BP 146/67
[2017-04-07] MEDS: HYDROcodone/APAP 5 MG/325 MG (LORTAB) TAB PO PRN (18:13)
[2017-04-07 19:15] VITALS: BP 146/67
[2017-04-08] MEDS: HYDROcodone/APAP 5 MG/325 MG (LORTAB) TAB PO PRN ×3 (01:38→20:41)
[2017-04-08 06:00] VITALS: BP 148/63
--- NOTE | 2017-04-08 11:28 | Physical Therapy Daily Note ---
PT Daily Note-Current Subjective Patient in bed pre tx, agrees to PT, has pain of 3/10 when up but none at rest. Appearance Patient BTB post tx with nurse call, phone, tray, all needs met. Mental Status Patient Orientation: Normal For Age Transfers Functional [place] Measure 0=Not Assessed/NA 4=Minimal Assistance 1=Total Assistance 5=Supervision or Setup 2=Maximal Assistance 6=Modified [place] 3=Moderate Assistance 7=Complete IndependenceIRFPAI Quality Coding Scale 6 Independent with activity with or without an assistive device 5 Patient requires set up or clean up by helper. Patient completes activity by themselves 4 Supervision or touching assist (CGA). [place] provide cues , steadying assist 3 The helper provides less than half the effort to complete the activity 2 The helper provides more than half the effort to complete the activity 1 Dependent. The helper does all the effort to complete an activity 7 Patient refused to complete or attempt activity 9 The patient did not perform the activity before the current illness or injury 88 Not attempted due to Medical conditions or safety concerns Transfers (B, C, W/C) (FIM): 4 Scootin Supine to/from Sit: 4 Sit to/from Stand: 5 Patient needs min assist for supine to sit Weight Bearing Weight Bearing Restriction: Touch Toe Bearing Location Restriction: L LE Gait Training Gait (FIM): 2 Distance: 100' Gait Level of Assist: 5 Gait Persons Needed: 1 Gait Assistive Device: FWW Patient states she has been putting maybe a little more than toe touch weight on her left leg. Exercises Supine Ex: Ankle pumps, Quad Set, Glut sets, Heel Slides, Straight leg raise Supine Reps: 10 Treatments bed mobility and transfers, ambulation, functional strengthening Assessment Current Status: Fair Progress improving mobility PT Emr Implementation Specialist Goals [facility] Goals PT [facility] Goals Time Frame: Apr 14, 2017 Transfers (B,C,W/C) (FIM): 6 Sit to Lying (QC): 5 Lying-Sitting on Side/Bed(QC): 5 Sit to Stand (QC): 5 Rollin Chair/Kju-of-Ptwbf Xfer(QC): 5 Does the Patient Walk: Yes Gait (FIM): 6 Gait distance (FIM): 3=150 ft Walk 50ft with 2 Turns (QC): 5 Walk 150 ft (QC): 5 Gait Level of Assist: 6 Gait Assistive Device: FWW PT Plan Problem List Problem List: Activity Tolerance, Functional Strength, Safety, Balance, Gait, Transfer, Bed Mobility, ROM Treatment/Plan Treatment Plan: Continue Plan of Care Treatment Plan: Bed Mobility, Education, Functional Activity Genna, Functional Strength, Gait, Safety, Therapeutic Exercise, Transfers Treatment Duration: Apr 14, 2017 Frequency: Twice Daily (M- and 1 time on Thursday) Estimated Hrs Per Day: .5 hour per day Patient and/or Family Agrees t: Yes Safety Risks/Education Patient Education: Gait Training, Transfer Techniques, Correct Positioning, Safety Issues Teaching Recipient: Patient Teaching Methods: Demonstration, Discussion Response to Teaching: Reinforcement Needed Time/GCodes Time In: 1105 Time Out: 1125 Total Billed Treatment Time: 20 Total Billed Treatment 1 visit GT 20' BRIE GENAO PT Apr 08, 2017 11:28
--- NOTE | 2017-04-08 14:25 | Occupational Ther Daily Note ---
OT Current Status-Daily Note Subjective Pt in bed, agrees to treatment. Pt reports fatigue this am. Mental Status/Objective Functional [place] Measure 0=Not Assessed/NA 4=Minimal Assistance 1=Total Assistance 5=Supervision or Setup 2=Maximal Assistance 6=Modified [place] 3=Moderate Assistance 7=Complete [place] ADL-Treatment Pt states she has just finished showering with assist from nursing. Pt supine to sit with minimal assistance for left LE. Education provided regarding use of adaptive equipment for LE dressing. Pt demonstrated ability to don socks with minimal assistance using sock aid. Pt also educated on use of molecular geneticist for LE ADLs, but declined to attempt at this time. Pt states she is fatigued and needs to return to bed. Sit to supine with assist for left LE. Pt able to scoot to HOB without assistance. Pt resting in bed with needs met after session. Functional [place] Measure 0=Not Assessed/NA 4=Minimal Assistance 1=Total Assistance 5=Supervision or Setup 2=Maximal Assistance 6=Modified [place] 3=Moderate Assistance 7=Complete IndependenceIRFPAI Quality Coding Scale 6 Independent with activity with or without an assistive device 5 Patient requires set up or clean up by helper. Patient completes activity by themselves 4 Supervision or touching assist (CGA). [place] provide cues , steadying assist 3 The helper provides less than half the effort to complete the activity 2 The helper provides more than half the effort to complete the activity 1 Dependent. The helper does all the effort to complete an activity 7 Patient refused to complete or attempt activity 9 The patient did not perform the activity before the current illness or injury 88 Not attempted due to Medical conditions or safety concerns OT Short Term Goals Short Term Goals 1=Demonstrate adherence to instructed precautions during ADL tasks. 2=Patient will verbalize/demonstrate understanding of assistive devices/ modifications for ADL. 3=Patient will improve strength/tolerance for activity to enable patient to perform ADL's. OT Fpc Goals Winding Department Supervisor Goals Time Frame: Apr 14, 2017 Eating (FIM): 6 Eating (QC): 6 Groomin Oral Hygiene (QC): 6 Upper Body Dressing(FIM): 5 Lower Body Dressing(FIM): 5 Toileting(FIM): 6 Toileting Hygiene (QC): 6 Toilet/Commode Transfer(FIM): 6 Toilet/Commode Transfer (QC): 6 Additional Goals: 1-Demonstrate ADL Tasks, 2-Verbalize Understanding, 3- ImproveStrength/Genna 1=Demonstrate adherence to instructed precautions during ADL tasks. 2=Patient will verbalize/demonstrate understanding of assistive devices/ modifications for ADL. 3=Patient will improve strength/tolerance for activity to enable patient to perform ADL's. OT Education/Plan Problem List/Assessment Pt would benefit from skilled OT to increase her independence in basic self care to allow her to safely return to her home, to live with family support Discharge Recommendations Plan/Recommendations: Continue POC Treatment Plan/Plan of Care Patient would benefit from OT for education, treatment and training to promote independence in ADL's, mobility, safety and/or upper extremity function for ADL' s. Plan of Care: ADL Retraining, UE Funct Exercise/Act Treatment Duration: Apr 14, 2017 Frequency: Daily Estimated Hrs Per Day: .5 hour per day Agreement: Yes Rehab Potential: Good Time/GCodes Start Time: 10:12 Stop Time: 10:31 Total Time Billed (hr/min): 19 Billed Treatment Time 1 visit, ADL(19minutes) LUCIA HANLEY OT Apr 08, 2017 14:25
[2017-04-08] MEDS: ENOXAPARIN 40 MG/0.4 ML (LOVENOX) SYR SC SCH (14:44)
--- NOTE | 2017-04-08 16:15 | Physical Therapy Daily Note ---
PT Daily Note-Current Subjective Patient in bed pre tx, agrees to PT, states she has pain of 4/10 in left hip. Appearance Patient in bed post tx with nurse call, phone, tray, all needs met. Mental Status Patient Orientation: Normal For Age Transfers Functional [place] Measure 0=Not Assessed/NA 4=Minimal Assistance 1=Total Assistance 5=Supervision or Setup 2=Maximal Assistance 6=Modified [place] 3=Moderate Assistance 7=Complete IndependenceIRFPAI Quality Coding Scale 6 Independent with activity with or without an assistive device 5 Patient requires set up or clean up by helper. Patient completes activity by themselves 4 Supervision or touching assist (CGA). [place] provide cues , steadying assist 3 The helper provides less than half the effort to complete the activity 2 The helper provides more than half the effort to complete the activity 1 Dependent. The helper does all the effort to complete an activity 7 Patient refused to complete or attempt activity 9 The patient did not perform the activity before the current illness or injury 88 Not attempted due to Medical conditions or safety concerns Transfers (B, C, W/C) (FIM): 4 Scootin Supine to/from Sit: 4 Sit to/from Stand: 5 Patient needs min assist getting left leg into and out of bed. Gait Training Gait (FIM): 5 Distance: 160' Gait Level of Assist: 5 Gait Persons Needed: 1 Gait Assistive Device: FWW Slow, antalgic, stiff left leg, decreased knee flexion during ambulation Treatments bed mobility and transfers, ambulation Assessment Current Status: Fair Progress improving mobility and ambulation PT Senior Living Goals Harness And Bag Inspector Goals PT Senior Living Goals Time Frame: Apr 14, 2017 Transfers (B,C,W/C) (FIM): 6 Sit to Lying (QC): 5 Lying-Sitting on Side/Bed(QC): 5 Sit to Stand (QC): 5 Rollin Chair/Fkm-rb-Fwocs Xfer(QC): 5 Does the Patient Walk: Yes Gait (FIM): 6 Gait distance (FIM): 3=150 ft Walk 50ft with 2 Turns (QC): 5 Walk 150 ft (QC): 5 Gait Level of Assist: 6 Gait Assistive Device: FWW PT Plan Problem List Problem List: Activity Tolerance, Functional Strength, Safety, Balance, Gait, Transfer, Bed Mobility, ROM Treatment/Plan Treatment Plan: Continue Plan of Care Treatment Plan: Bed Mobility, Education, Functional Activity Genna, Functional Strength, Gait, Safety, Therapeutic Exercise, Transfers Treatment Duration: Apr 14, 2017 Frequency: Twice Daily (M-F and 1 time on Thursday) Estimated Hrs Per Day: .5 hour per day Patient and/or Family Agrees t: Yes Safety Risks/Education Patient Education: Gait Training, Transfer Techniques, Correct Positioning, Safety Issues Teaching Recipient: Patient Teaching Methods: Demonstration, Discussion Response to Teaching: Reinforcement Needed Time/GCodes Time In: 1555 Time Out: 1610 Total Billed Treatment Time: 15 Total Billed Treatment 1 visit GT 15' BRIE GENAO PT Apr 08, 2017 16:15
[2017-04-08 17:27] VITALS: BP 136/65
[2017-04-09 06:00] VITALS: BP 151/66
--- NOTE | 2017-04-09 10:00 | Physical Therapy Daily Note ---
PT Daily Note-Current Subjective Patient just complete with a shower and agrees to PT. Pain Numeric Pain Scale: 5-Moderate Pain Location: Left Location Body Site: Hip Pain Description: Acute Mental Status Patient Orientation: Normal For Age Transfers Functional [place] Measure 0=Not Assessed/NA 4=Minimal Assistance 1=Total Assistance 5=Supervision or Setup 2=Maximal Assistance 6=Modified [place] 3=Moderate Assistance 7=Complete IndependenceIRFPAI Quality Coding Scale 6 Independent with activity with or without an assistive device 5 Patient requires set up or clean up by helper. Patient completes activity by themselves 4 Supervision or touching assist (CGA). [place] provide cues , steadying assist 3 The helper provides less than half the effort to complete the activity 2 The helper provides more than half the effort to complete the activity 1 Dependent. The helper does all the effort to complete an activity 7 Patient refused to complete or attempt activity 9 The patient did not perform the activity before the current illness or injury 88 Not attempted due to Medical conditions or safety concerns Transfers (B, C, W/C) (FIM): 6 Scootin Roll Left to Right (QC): 5 Supine to/from Sit: 6 Sit to/from Stand: 6 Sit to Lying (QC): 5 Sit to Stand (QC): 5 Chair/Swg-up-Omuii Xfer(QC): 5 Bed to/from Chair: 6 Weight Bearing Weight Bearing Restriction: Touch Toe Bearing Location Restriction: L LE Gait Training Does the Patient Walk?: Yes Gait (FIM): 6 Distance (FIM): 3=150 ft Distance: 250' Walk 50 ft with 2 Turns(QC): 5 Walk 150 ft (QC): 5 Gait Level of Assist: 6 Gait Assistive Device: FWW TTWB left LE compliance Exercises Supine Ex: Ankle pumps, Quad Set, Heel Slides Supine Reps: 15 Seated Therapy Exercises: Ankle pumps, Long arc quads Seated Reps: 15 Assessment Patient tolerated treatment well. Patient performs exercises independently and reports she does them PRN. Patient to dismiss to home tomorrow. PT Skilled Nursing Goals Patient Transition Specialist Goals PT Skilled Nursing Goals Time Frame: Apr 14, 2017 Transfers (B,C,W/C) (FIM): 6 Sit to Lying (QC): 5 Lying-Sitting on Side/Bed(QC): 5 Sit to Stand (QC): 5 Rollin Chair/Nri-lg-Vzkmm Xfer(QC): 5 Does the Patient Walk: Yes Gait (FIM): 6 Gait distance (FIM): 3=150 ft Walk 50ft with 2 Turns (QC): 5 Walk 150 ft (QC): 5 Gait Level of Assist: 6 Gait Assistive Device: FWW PT Plan Treatment/Plan Treatment Plan: Continue Plan of Care Treatment Plan: Bed Mobility, Education, Functional Activity Genna, Functional Strength, Gait, Safety, Therapeutic Exercise, Transfers Treatment Duration: Apr 14, 2017 Frequency: Twice Daily (M- and 1 time on Thursday) Estimated Hrs Per Day: .5 hour per day Patient and/or Family Agrees t: Yes Time/GCodes Time In: 931 Time Out: 954 Total Billed Treatment Time: 23 Total Billed Treatment 1 visit GT 15 min EX 8 min NICK QUIÑONEZ PT Apr 09, 2017 10:00
--- NOTE | 2017-04-09 11:16 | Occupational Ther Daily Note ---
OT Current Status-Daily Note Subjective Pt states she is fatigued from not sleeping well and from this morning's activity, but agrees to treatment. Pt has no c/o pain during session. Mental Status/Objective Functional [place] Measure 0=Not Assessed/NA 4=Minimal Assistance 1=Total Assistance 5=Supervision or Setup 2=Maximal Assistance 6=Modified [place] 3=Moderate Assistance 7=Complete [place] ADL-Treatment Pt states she has already ambulated with PT, taken a shower, and completed grooming this morning. Pt supine to sit with modified independence. Sit to stand with modified independence. Gait to restroom with FWW. Pt transferred to [facility] over toilet with SBA. Pt able to manage hygiene and clothing with SBA. Pt stood at sink to wash hands with SBA. Return to EOB with FWW. Pt doffed right sock without assist, requires assist for left sock. Sit to supine with assist for left LE. Pt states she will d/c home tomorrow. Pt states daughter will be staying with her at d/c. Pt has no questions or concerns regarding ADLs or home safety. Pt in bed with needs met after session. Functional [place] Measure 0=Not Assessed/NA 4=Minimal Assistance 1=Total Assistance 5=Supervision or Setup 2=Maximal Assistance 6=Modified [place] 3=Moderate Assistance 7=Complete IndependenceIRFPAI Quality Coding Scale 6 Independent with activity with or without an assistive device 5 Patient requires set up or clean up by helper. Patient completes activity by themselves 4 Supervision or touching assist (CGA). [place] provide cues , steadying assist 3 The helper provides less than half the effort to complete the activity 2 The helper provides more than half the effort to complete the activity 1 Dependent. The helper does all the effort to complete an activity 7 Patient refused to complete or attempt activity 9 The patient did not perform the activity before the current illness or injury 88 Not attempted due to Medical conditions or safety concerns Grooming (FIM): 6 (by pt report) Oral Hygiene (QC): 6 Toileting (FIM): 5 Toileting Hygiene (QC): 5 Toilet/Commode Transfer (FIM): 5 Toilet Transfer (QC): 5 OT Short Term Goals Short Term Goals 1=Demonstrate adherence to instructed precautions during ADL tasks. 2=Patient will verbalize/demonstrate understanding of assistive devices/ modifications for ADL. 3=Patient will improve strength/tolerance for activity to enable patient to perform ADL's. OT Mcc Goals Fsr Goals Time Frame: Apr 14, 2017 Eating (FIM): 6 Eating (QC): 6 Groomin Oral Hygiene (QC): 6 Upper Body Dressing(FIM): 5 Lower Body Dressing(FIM): 5 Toileting(FIM): 6 Toileting Hygiene (QC): 6 Toilet/Commode Transfer(FIM): 6 Toilet/Commode Transfer (QC): 6 Additional Goals: 1-Demonstrate ADL Tasks, 2-Verbalize Understanding, 3- ImproveStrength/Genna 1=Demonstrate adherence to instructed precautions during ADL tasks. 2=Patient will verbalize/demonstrate understanding of assistive devices/ modifications for ADL. 3=Patient will improve strength/tolerance for activity to enable patient to perform ADL's. OT Education/Plan Problem List/Assessment Pt would benefit from skilled OT to increase her independence in basic self care to allow her to safely return to her home, to live with family support Discharge Recommendations Plan/Recommendations: Continue POC Treatment Plan/Plan of Care Patient would benefit from OT for education, treatment and training to promote independence in ADL's, mobility, safety and/or upper extremity function for ADL' s. Plan of Care: ADL Retraining, UE Funct Exercise/Act Treatment Duration: Apr 14, 2017 Frequency: Daily Estimated Hrs Per Day: .5 hour per day Agreement: Yes Rehab Potential: Good Time/GCodes Start Time: 10:30 Stop Time: 10:45 Total Time Billed (hr/min): 15 Billed Treatment Time 1 visit, ADL(15minutes) LUCIA HANLEY OT Apr 09, 2017 11:16
--- NOTE | 2017-04-09 11:47 | Progress Note-Hospitalist ---
Standard Progress Note Progress Notes/Assess & Plan Date Seen 04/09/17 Time Seen by Provider: 11:41 Assess & Plan/Chief Complaint The patient reports minimum pain. She has been doing very well at ambulation by PT reports. The plan is for her to be discharged tomorrow to home. One of her daughters is taking a leave of absence to bridge the needs. PT states her only requirement is a front wheeled walker. Physical exam: Lungs are clear to auscultation. CV is regular. Ankles show no edema. Impression: Fracture of the hip with operative fixation. Excellent progress. Plan: Discharge tomorrow. CINDY ALEMAN MD Apr 09, 2017 11:47
[2017-04-09] MEDS ORDERED: HYDR-3812 PO (11:49)
--- NOTE | 2017-04-09 11:57 | Discharge Instructions ---
Discharge Instructions Discharge Medications New, Converted or Re-Newed RX: RX on Chart Patient Instructions Patient Instructions: Sit and use walker as instructed. Let pain be your guide. Increasing pain and exhaustion are indicators YOU should back off in your activities. Schedule follow-up with Dr. Antony/ortho [facility] to [facility]: Extreme problems. Activity & Diet Discharge Diet: No Restrictions Activity as Tolerated: Yes CINDY ALEMAN MD Apr 09, 2017 11:53
--- NOTE | 2017-04-09 12:08 | D/C HH Face to Face Order ---
D/C Face to Face Orders Instructions for Patient Patient Instructions/FollowUp: Already done Physician to follow Patient: BRYNN Discharge Diet for Home: No Restrictions Patient Data-Allergies,Ht & Wt Patient Allergies: Coded Allergies: No Allergy Information Available (Unverified , 04/04/17) Height (Feet): 5 Height (Inches): 3.00 Weight (Pounds): 139 Weight (Ounces): 5.0 Home Health Need/Face to Face Date of Face to Face: Apr 09, 2017 Clinical Findings: Non or partial weight bearing I have seen Pt qsgb-ra-jeep: Yes Discharged To: Home Diagnosis/Conditions: Fracture left hip/status post op Problems/Diagnosis/Condition: Patient is Homebound due to: Romero fall risk due to instabilty, Non-weight bearing Homebound Status Due to the above stated illness, injury or surgical procedure (medical condition or diagnosis) and associated clinical findings, the patient is homebound because of his/her inability to leave home except with aid of a supportive device and/or person AND leaving the home requires a considerable and taxing effort or is medically contraindicated. y Pt req the following assistanc: Walker Home Health Nursing Orders Home Health Services Order: Online Banking Specialist-Evaluate & Treat, Physical Therapy-Evaluate & Treat Home Health Infusion Therapy Line Type: Saline Lock Site Location: Antecubital Therapy Orders Therapy Orders: Physical Therapy, PT to assess for OT Therapy Specific Orders: Eval assistive deivces, Teach enviro modifications/ safety, Gait training, Increase strength/endurance, Provider maintenance therapy , Restore ROM Certify Stmt I certify that this patient is under my care and that I, a nurse practitioner or a physician; a doctor's assistant working with me, had a face to face encounter that - meets the physician face to face encounter requirements with this patient as dated. CINDY Guajardo MD Apr 09, 2017 12:08
--- NOTE | 2017-04-09 14:23 | Physical Therapy Daily Note ---
PT Daily Note-Current Subjective Patient agrees to PT. No c/o at this time. Pain Numeric Pain Scale: 3 Location: Left Location Body Site: Hip Pain Description: Acute Mental Status Patient Orientation: Normal For Age Transfers Functional [place] Measure 0=Not Assessed/NA 4=Minimal Assistance 1=Total Assistance 5=Supervision or Setup 2=Maximal Assistance 6=Modified [place] 3=Moderate Assistance 7=Complete IndependenceIRFPAI Quality Coding Scale 6 Independent with activity with or without an assistive device 5 Patient requires set up or clean up by helper. Patient completes activity by themselves 4 Supervision or touching assist (CGA). [place] provide cues , steadying assist 3 The helper provides less than half the effort to complete the activity 2 The helper provides more than half the effort to complete the activity 1 Dependent. The helper does all the effort to complete an activity 7 Patient refused to complete or attempt activity 9 The patient did not perform the activity before the current illness or injury 88 Not attempted due to Medical conditions or safety concerns Transfers (B, C, W/C) (FIM): 6 Scootin Roll Left to Right (QC): 5 Supine to/from Sit: 6 Sit to/from Stand: 6 Sit to Lying (QC): 5 Sit to Stand (QC): 5 Chair/Ygt-vq-Lkyig Xfer(QC): 5 Bed to/from Chair: 6 Weight Bearing Weight Bearing Restriction: Touch Toe Bearing Location Restriction: L LE Gait Training Does the Patient Walk?: Yes Gait (FIM): 6 Distance (FIM): 3=150 ft Distance: 250' Walk 50 ft with 2 Turns(QC): 5 Walk 150 ft (QC): 5 Gait Level of Assist: 6 Gait Assistive Device: FWW steady, reciprocal pattern Assessment Patient will dismiss to home tomorrow with family support and home health intervention. Patient is highly motivated with progress. PT Alf Goals Alf Goals PT Alf Goals Time Frame: Apr 14, 2017 Transfers (B,C,W/C) (FIM): 6 (met 04/09/17) Sit to Lying (QC): 5 (met 04/09/17) Lying-Sitting on Side/Bed(QC): 5 (met 04/09/17) Sit to Stand (QC): 5 (met 04/09/17) Rollin (met 04/09/17) Chair/Fil-xb-Jokai Xfer(QC): 5 (met 04/09/17) Does the Patient Walk: Yes Gait (FIM): 6 (met 04/09/17) Gait distance (FIM): 3=150 ft Walk 50ft with 2 Turns (QC): 5 (met 04/09/17) Walk 150 ft (QC): 5 (met 04/09/17) Gait Level of Assist: 6 (met 04/09/17) Gait Assistive Device: FWW PT Plan Treatment/Plan Treatment Plan: Continue Plan of Care Treatment Plan: Bed Mobility, Education, Functional Activity Genna, Functional Strength, Gait, Safety, Therapeutic Exercise, Transfers Treatment Duration: Apr 14, 2017 Frequency: Twice Daily (M- and 1 time on Thursday) Estimated Hrs Per Day: .5 hour per day Patient and/or Family Agrees t: Yes Discharge Recommendations Equpiment Recommendations-D/C: Front Wheeled Walker Time/GCodes Time In: 1230 Time Out: 1245 Total Billed Treatment Time: 15 Total Billed Treatment 1 visit GT 15 min NICK QUIÑONEZ PT Apr 09, 2017 14:23
[2017-04-09] MEDS: ENOXAPARIN 40 MG/0.4 ML (LOVENOX) SYR SC SCH (15:17)
[2017-04-09] MEDS: HYDROcodone/APAP 5 MG/325 MG (LORTAB) TAB PO PRN (17:12)
[2017-04-09 18:50] VITALS: BP 112/59
[2017-04-10] MEDS: HYDROcodone/APAP 5 MG/325 MG (LORTAB) TAB PO PRN (04:14)
[2017-04-10 05:05] VITALS: BP 120/59
--- NOTE | 2017-04-10 13:20 | Therapy Team Discharge Summary ---
Therapy Discharge Summary Discharge Recommendations Date of Discharge Apr 10, 2017 at 12:50 Therapy D/C Recommendations: Occupational Therapy Home Care Occupational Therapy Pt admitted to [facility] following acute hospitalization for left hip fracture s/p surgical intervention. On admission pt required SBA for grooming and transfers. Skilled OT intervention focused on ADL training, transfers, and home safety education. Pt made progress with therapy and by discharge is completing grooming with modified independence and toileting and toilet transfer with SBA. Pt met goals for eating and grooming, but did not meet other goals. Pt discharged home with family support. D/C [facility] OT at this time. PT Fpc Goals Fpc Goals PT Fpc Goals Time Frame: Apr 14, 2017 Transfers (B,C,W/C) (FIM): 6 (met 04/09/17) Sit to Lying (QC): 5 (met 04/09/17) Lying-Sitting on Side/Bed(QC): 5 (met 04/09/17) Sit to Stand (QC): 5 (met 04/09/17) Rollin (met 04/09/17) Chair/Saq-pr-Saspu Xfer(QC): 5 (met 04/09/17) Does the Patient Walk: Yes Gait (FIM): 6 (met 04/09/17) Gait distance (FIM): 3=150 ft Walk 50ft with 2 Turns (QC): 5 (met 04/09/17) Walk 150 ft (QC): 5 (met 04/09/17) Gait Level of Assist: 6 (met 04/09/17) Gait Assistive Device: FWW OT Fpc Goals Peanut Shaker Goals Time Frame: Apr 14, 2017 Eating (FIM): 6 Eating (QC): 6 Groomin Oral Hygiene (QC): 6 Upper Body Dressing(FIM): 5 Lower Body Dressing(FIM): 5 Toileting(FIM): 6 Toileting Hygiene (QC): 6 Toilet/Commode Transfer(FIM): 6 Toilet/Commode Transfer (QC): 6 Additional Goals: 1-Demonstrate ADL Tasks, 2-Verbalize Understanding, 3- ImproveStrength/Genna 1=Demonstrate adherence to instructed precautions during ADL tasks. 2=Patient will verbalize/demonstrate understanding of assistive devices/ modifications for ADL. 3=Patient will improve strength/tolerance for activity to enable patient to perform ADL's. LUCIA HANLEY OT Apr 10, 2017 13:20
== END 2017-04-10 12:50 | disposition home health service (06) | DRG 561 ==
LOC: 4TH 12:51
PROVIDERS: ADMIT Internal Medicine; ATTEND Internal Medicine
DX: S72.002D Fracture of unspecified part of neck of left femur, subsequent encounter for closed fracture with routine healing (principal)

== ENCOUNTER 2018-08-29 15:16 | Emergency (ER) | payer MEDICARE ==
[~2018-08-29] VITALS: Ht 160 cm; Wt 61.2 kg
[~2018-08-29 15:16] MED LIST changes: +ACHD5005 PO
--- NOTE | 2018-08-29 15:43 | ED Trauma-Multisystem ---
General Chief Complaint: Trauma-Non Activation Stated Complaint: FALL/HEAD LAC Nursing Triage Note: AMB TO ROOM REPORTS APX 12PM TODAY LEFT [employer] AND STEPPED ON PEBBLE LOST BALANCE AND FELL OFF CURVE HITTING FACE ABRASION TO FACE WITH LACERATION ABOVE R EYE. Source of Information: Patient Exam Limitations: No Limitations History of Present Illness Date Seen by Provider: Aug 29, 2018 Time Seen by Provider: 15:30 Initial Comments Patient is an 82-year-old female who presents to the emergency room with complaints of a fall at around 12:00 today. Reports she was leaving [employer] and she stepped off a curb stepping onto a rock causing her to lose her balance and fall hitting her face on the pavement. She has abrasions to her forehead nose and chin and has a laceration just above her right eyebrow. She denies loss of consciousness, head, neck pain. Occurred: This Afternoon Pain/Injury Location: Face Associated Symptoms (Fall): Denies Symptoms Allergies and Home Medications Allergies Coded Allergies: No Allergy Information Available (Unverified , 04/04/17) Home Medications Aspirin 325 Mg Tablet.dr, 325 MG PO DAILY PRN for PAIN-MILD, (Reported) Hydrocodone Bit/Acetaminophen 1 Each Tablet, 1 TAB PO Q4H PRN for PAIN-MODERATE Prescribed by: CINDY ALEMAN on 04/09/17 1149 Patient Home Medication List Home Medication List Reviewed: Yes Review of Systems Review of Systems Constitutional: no symptoms reported, see HPI Skin: see HPI, other (abrasions to her forehead, into her nose, chin. Laceration above the right eyebrow) Past Kacfusb-Edjnkm-Vtahhj Hx Past Med/Social Hx: Reviewed Nursing Past Med/Soc Hx Patient Social History Alcohol Use: Denies Use Recreational Drug Use: No Smoking Status: Never a Smoker Recent Foreign Travel: No Contact w/Someone Who Travel: No Recent Infectious Disease Expo: No Recent Hopitalizations: No Seasonal Allergies Seasonal Allergies: No Past Medical History Surgeries: No Respiratory: No Cardiac: No Neurological: No Genitourinary: No Gastrointestinal: No Musculoskeletal: No Endocrine: No HEENT: No Loss of Vision: Denies Cancer: No Psychosocial: No Integumentary: No Blood Disorders: No Family Medical History Reviewed Nursing Family Hx Physical Exam Vital Signs Vital Signs - First Documented 08/29/18 15:21 Temp 97.9 Pulse 98 Resp 18 B/P (MAP) 135/78 (97) Pulse Ox 94 O2 Delivery Room Air Height, Weight, BMI Height: 5'3.00" Weight: 135lbs. 5.0oz. 61.182055gx; 24.7 BMI Method:Stated General Appearance: No Apparent Distress, WD/WN Head: Lacerations (to the forehead just above the right eyebrow.), Other ( abrasions to the forehead, nose, chin.) Eyes: Bilateral Eye Normal Inspection, Bilateral Eye PERRL, Bilateral Eye EOMI Ears, Nose, Throat: Hearing Grossly Normal, No Evidence of ENT Injury, No Dental Injury Neck: Full Range of Motion, Normal Inspection, Non Tender, Supple Cardiovascular: Regular Rate, Rhythm, No Edema, No Gallop, No JVD, No Murmur, Normal Peripheral Pulses Respiratory: Chest Non Tender, Lungs Clear, Normal Breath Sounds, No Accessory Muscle Use, No Respiratory Distress Extremity: Normal Capillary Refill, No Pedal Edema Neurologic/Psychiatric: Alert, Oriented x3, No Motor/Sensory Deficits, Normal Mood/Affect Skin: Normal Color, Warm/Dry [place] Coma Score Best Eye Response ([place]): (4) Open Spontaneously Best Verbal Response ([place]): (5) Oriented Best Motor Response ([place]): (6) Obeys Commands [place] Total: 15 Procedures/Interventions Wound Location: Face Other Wound Location see images Wound Length (cm): 1 Wound's Depth, Shape: superficial Wound Explored: clean Irrigated w/ Saline (ccs): 50 Other Closure Supply: Wound Adhesive Progress The wound was cleaned and irrigated with normal saline and Betasept. The wound was closed with skin affix. Patient tolerated procedure well. Progress/Results/Core Measures Results/Orders My Orders Orders - AMANDA PALACIOS Ct Head Wo (08/29/18 15:33) Dipht,Pertuss(Acell),Tet Adult (Boostrix (08/29/18 15:45) Medications Given in ED Vital Signs/I&O 08/29/18 08/29/18 15:21 16:18 Temp 97.9 Pulse 98 82 Resp 18 18 B/P (MAP) 135/78 (97) 141/67 (91) Pulse Ox 94 96 O2 Delivery Room Air Blood Pressure Mean: 97 Diagnostic Imaging Diagonstic Imaging: CT Plain Films/CT/US/NM/MRI: head Comments NAME: MOISES CAMARGO [facility] REC#: [id number] PHYSICIAN: AMANDA PALACIOS CC: AMANDA PALACIOS; IVÁN CROWE MD Page 1 of 1 RADIOLOGY REPORT [facility], [place], [place] CC: AMANDA PALACIOS; IVÁN CROWE MD Page 1 of 1 RADIOLOGY REPORT NAME: MOISES CAMARGO [facility] REC#: [id number] PT STATUS: REG ER : 1935 PHYSICIAN: AMANDA PALACIOS ADMIT DATE: 08/29/18/ER Signed Date of Exam: 08/29/18 CT HEAD WO Procedure: CT head without contrast. Technique: Multiple contiguous axial images were obtained through the brain without the use of intravenous contrast. Indication: Head injury after fall, pain. Comparison: None. Discussion: No intracranial hemorrhage, mass, midline shift or hydrocephalus. The ventricles and sulci are normal size and configuration for age. The visualized orbits, paranasal sinuses, mastoid air cells and calvarium are unremarkable. Impression: Negative head CT. Dictated by: Dictated on workstation # [id number] Dict: 08/29/18 1549 Trans: 08/29/18 1642 Interpreted by: IVÁN CROWE MD Electronically signed by: IVÁN CROWE MD 08/29/18 1642 Reviewed: Reviewed by Me Departure Impression Primary Impression: Minor head injury Additional Impressions: Fall Laceration Skin abrasion Disposition: 01 HOME, SELF-CARE Condition: Stable/Unchanged Departure-Patient Inst. Decision time for Depature: 16:00 Referrals: NO,LOCAL PHYSICIAN (PCP/Family) Primary Care Physician Patient Instructions: Laceration Repair With Glue (DC), Minor Head Injury (DC) Add. Discharge Instructions: Let the glue fall off on its own. Do not use any facial creams, ointments, lotions around the area of the glue. Watch for signs of infection such as increased redness, swelling, drainage. You may use ibuprofen and Tylenol as directed by the bottle for pain relief. Follow-up with primary care provider within 1 week for recheck. Return back to the emergency room for any worsening symptoms or concerns as needed. All discharge instructions reviewed with patient and/or family. Voiced understanding. Images Head/Face 1 - Laceration AMANDA PALACIOS Aug 29, 2018 15:43
[2018-08-29] MEDS ORDERED: TETANUS,DIPTH,PERTUSS P/F (BOOSTRIX) 0.5 ML VIAL IM ONE (15:45)
--- NOTE | 2018-08-29 15:52 | Diagnostic Imaging Report ---
Procedure: CT head without contrast. Technique: Multiple contiguous axial images were obtained through the brain without the use of intravenous contrast. Indication: Head injury after fall, pain. Comparison: None. Discussion: No intracranial hemorrhage, mass, midline shift or hydrocephalus. The ventricles and sulci are normal size and configuration for age. The visualized orbits, paranasal sinuses, mastoid air cells and calvarium are unremarkable. Impression: Negative head CT. Dictated by: Dictated on workstation # [id number]
[2018-08-29 16:18] VITALS: BP 141/67
== END 2018-08-29 16:18 | disposition home or self-care (01) ==
LOC: EDUNIT# 15:16 → ER 15:18
DX: S09.90XA Unspecified injury of head, initial encounter (principal); S01.81XA Laceration without foreign body of other part of head, initial encounter; R40.2142 Coma scale, eyes open, spontaneous, at arrival to emergency department; R40.2252 Coma scale, best verbal response, oriented, at arrival to emergency department; R40.2362 Coma scale, best motor response, obeys commands, at arrival to emergency department; Z23 Encounter for immunization; Z79.82 Long term (current) use of aspirin; W01.198A Fall on same level from slipping, tripping and stumbling with subsequent striking against other object, initial encounter
CPT/HCPCS: 70450; 90715

== ENCOUNTER 2021-03-02 10:38 | Inpatient (IN) | payer MEDICARE, MEDICAID ==
[~2021-03-02] VITALS: Ht 157 cm; Wt 52.0 kg
[2021-03-02] MEDS ORDERED: NS IV 500 ML 500 ML IV ONE (11:00)
[2021-03-02 11:08] LABS: BASOPHILS % (AUTO) 1 % (0-10); EOSINOPHILS # (AUTO) 0.1 10^3/uL (0.0-0.3); EOSINOPHILS % (AUTO) 2 % (0-10); HEMATOCRIT 35 % (35-52); HEMOGLOBIN 11.3 g/dL (11.5-16.0); LYMPHOCYTES # (AUTO) 1.6 10^3/uL (1.0-4.0); LYMPHOCYTES % (AUTO) 28 % (12-44); MEAN CORPUSCULAR HEMOGLOBIN 29 pg (25-34); MEAN CORPUSCULAR HGB CONC 33 g/dL (32-36); MEAN CORPUSCULAR VOLUME 89 fL (80-99); MONOCYTES # (AUTO) 0.6 10^3/uL (0.0-1.0); MONOCYTES % (AUTO) 11 % (0-12); NEUTROPHILS # (AUTO) 3.3 10^3/uL (1.8-7.8); NEUTROPHILS % (AUTO) 58 % (42-75); PLATELET COUNT 352 10^3/uL (130-400); WHITE BLOOD COUNT 5.8 10^3/uL (4.3-11.0)
[2021-03-02 11:14] LABS: INR 1.3 (0.8-1.4); PROTHROMBIN TIME PATIENT 16.2 SEC (12.2-14.7)
--- NOTE | 2021-03-02 11:14 | ED General ---
General Chief Complaint: Cardiac/General Problems Stated Complaint: IRR HEART RATE Nursing Triage Note: PT TO ROOM 5 PER W/C PT STATES FEELS LIKE HEART BEATING FAST SINCE ABOUT 1000 THIS AM. DENIES C/P, FEVERS, SOA. Nursing Sepsis Screen: No Definite Risk Source of Information: Caregiver Exam Limitations: No Limitations History of Present Illness Date Seen by Provider: Mar 02, 2021 Time Seen by Provider: 10:47 Initial Comments Here with report of feeling like her heart was beating fast or weak. She called her daughter who came over and noted that her heart was beating a little fast. Patient denies chest pain or breathing problems. Denies weakness or shortness of breath. She states that she did not sleep at all last night and is not sure what that is about. Denies increasing caffeine or taking any medications. She only takes vitamins. She does not follow with a doctor. States she has no medical problems. She has had previous surgeries for hip fracture. Timing/Duration: 1 Hour Severity: Mild Associated Systoms: No Chest Pain, No Cough, No Fever/Chills, No Nausea/Vomiting, No Shortness of Air, No Weakness Allergies and Home Medications Allergies Coded Allergies: No Allergy Information Available (Unverified , 04/04/17) Home Medications Aspirin 325 Mg Tablet.dr, 325 MG PO DAILY PRN for PAIN-MILD, (Reported) Hydrocodone Bit/Acetaminophen 1 Each Tablet, 1 TAB PO Q4H PRN for PAIN-MODERATE Prescribed by: CINDY ALEMAN on 04/09/17 1149 Patient Home Medication List Home Medication List Reviewed: Yes Review of Systems Review of Systems Constitutional: No chills, No fever EENTM: No nose congestion, No throat pain Respiratory: No cough, No short of breath Cardiovascular: No chest pain; palpitations Gastrointestinal: No nausea, No vomiting Genitourinary: no symptoms reported Musculoskeletal: no symptoms reported All Other Systems Reviewed Negative Unless Noted: Yes Past Qeclutj-Qxryew-Txvryu Hx Past Med/Social Hx: Reviewed Nursing Past Med/Soc Hx Patient Social History Alcohol Use: Denies Use Smoking Status: Never a Smoker Recent Infectious Disease Expo: No Recent Hopitalizations: No Seasonal Allergies Seasonal Allergies: No Past Medical History Surgeries: No Respiratory: No Cardiac: No Neurological: No Genitourinary: No Gastrointestinal: No Musculoskeletal: No Endocrine: No HEENT: No Loss of Vision: Denies Cancer: No Psychosocial: No Integumentary: No Blood Disorders: No Family Medical History Reviewed Nursing Family Hx Physical Exam Vital Signs Vital Signs - First Documented 03/02/21 10:40 Temp 36.2 Pulse 114 Resp 20 B/P (MAP) 123/81 (95) Pulse Ox 99 Capillary Refill : Less Than 3 Seconds Height, Weight, BMI Height: 5'3.00" Weight: 135lbs. 5.0oz. 61.864673nv; 21.00 BMI Method:Stated General Appearance: No Apparent Distress, WD/WN HEENT: PERRL/EOMI, Pharynx Normal Neck: Non Tender, Supple Respiratory: Lungs Clear, Normal Breath Sounds Cardiovascular: Systolic Murmur, Tachycardia Gastrointestinal: Non Tender, Soft Back: Normal Inspection, No CVA Tenderness, No Vertebral Tenderness Extremity: Normal Range of Motion, Non Tender Neurologic/Psychiatric: Alert, Oriented x3 Skin: Normal Color, Warm/Dry Progress/Results/Core Measures Suspected Sepsis Recent Fever Within 48 Hours: No Infection Criteria Present: None New/Unexplained Altered Menta: No Sepsis Screen: No Definite Risk SIRS Temperature: Pulse: 114 Respiratory Rate: 20 Laboratory Tests 03/02/21 10:55: White Blood Count 5.8 Blood Pressure 123 /81 Mean: 95 Laboratory Tests 03/02/21 10:55: Creatinine 0.64, INR Comment 1.3, Platelet Count 352, Total Bilirubin 0.5 Results/Orders Lab Results Laboratory Tests Test 03/02/21 10:55 03/02/21 13:00 Range/Units White Blood Count 5.8 4.3-11.0 10^3/uL Red Blood Count 3.89 3.80-5.11 10^6/uL Hemoglobin 11.3 L 11.5-16.0 g/dL Hematocrit 35 35-52 % Mean Corpuscular Volume 89 80-99 fL Mean Corpuscular Hemoglobin 29 25-34 pg Mean Corpuscular Hemoglobin Concent 33 32-36 g/dL Red Cell Distribution Width 13.9 10.0-14.5 % Platelet Count 352 130-400 10^3/uL Mean Platelet Volume 10.0 9.0-12.2 fL Immature Granulocyte % (Auto) 1 % Neutrophils (%) (Auto) 58 42-75 % Lymphocytes (%) (Auto) 28 12-44 % Monocytes (%) (Auto) 11 0-12 % Eosinophils (%) (Auto) 2 0-10 % Basophils (%) (Auto) 1 0-10 % Neutrophils # (Auto) 3.3 1.8-7.8 10^3/uL Lymphocytes # (Auto) 1.6 1.0-4.0 10^3/uL Monocytes # (Auto) 0.6 0.0-1.0 10^3/uL Eosinophils # (Auto) 0.1 0.0-0.3 10^3/uL Basophils # (Auto) 0.0 0.0-0.1 10^3/uL Immature Granulocyte # (Auto) 0.0 0.0-0.1 10^3/uL Prothrombin Time 16.2 H 12.2-14.7 SEC INR Comment 1.3 0.8-1.4 Activated Partial Thromboplast Time 28 24-35 SEC D-Dimer 1.69 H 0.00-0.49 UG/ML Sodium Level 128 L 135-145 MMOL/L Potassium Level 4.8 3.6-5.0 MMOL/L Chloride Level 96 L 98-107 MMOL/L Carbon Dioxide Level 18 L 21-32 MMOL/L Anion Gap 14 5-14 MMOL/L Blood Urea Nitrogen 12 7-18 MG/DL Creatinine 0.64 0.60-1.30 MG/DL Estimat Glomerular Filtration Rate > 60 BUN/Creatinine Ratio 19 Glucose Level 140 H 70-105 MG/DL Calcium Level 8.4 L 8.5-10.1 MG/DL Corrected Calcium 8.9 8.5-10.1 MG/DL Magnesium Level 1.8 1.6-2.4 MG/DL Total Bilirubin 0.5 0.1-1.0 MG/DL Aspartate Amino Transf (AST/SGOT) 101 H 5-34 U/L Alanine Aminotransferase (ALT/SGPT) 121 H 0-55 U/L Alkaline Phosphatase 80 40-136 U/L Myoglobin 89.2 10.0-92.0 NG/ML Troponin I 0.031 H 0.035 H <0.028 NG/ML B-Type Natriuretic Peptide 1028.3 H <100.0 PG/ML Total Protein 6.6 6.4-8.2 GM/DL Albumin 3.4 3.2-4.5 GM/DL My Orders Orders - ARACELI KIRKLAND MD Cbc With Automated Diff (03/02/21 11:00) Magnesium (03/02/21 11:00) Chest 1 View, Ap/Pa Only (03/02/21 11:00) Ekg Tracing (03/02/21 11:00) Comprehensive Metabolic Panel (03/02/21 11:00) Myoglobin Serum (03/02/21 11:00) Protime With Inr (03/02/21 11:00) Partial Thromboplastin Time (03/02/21 11:00) O2 (03/02/21 11:00) Monitor-Rhythm Ecg Trace Only (03/02/21 11:00) Lipid Panel (03/03/21 06:00) Ed Iv/Invasive Line Start (03/02/21 11:00) Fibrin Degradation Products (03/02/21 11:00) Troponin I (03/02/21 11:00) Ns Iv 500 Ml (Sodium Chloride 0.9%) (03/02/21 11:00) Troponin I (03/02/21 12:32) Ct Angio Chest W (03/02/21 13:25) BNP (03/02/21 13:28) Iohexol Injection (Omnipaque 350 Mg/Ml 1 (03/02/21 13:45) Received Contrast (Hold Metformin- Contr (03/02/21 13:45) Ns (Ivpb) (Sodium Chloride 0.9% Ivpb Bag (03/02/21 13:45) General/Regular (03/02/21 Lunch) Apixaban Tablet (Eliquis Tablet) (03/02/21 14:30) Medications Given in ED Current Medications Medications Dose Ordered Sig/Evan Route Start Time Stop Time Status Last Admin Dose Admin Iohexol 100 ml ONCE ONCE IV 03/02/21 13:45 03/02/21 13:46 DC 03/02/21 13:42 80 ML Sodium Chloride 100 ml ONCE ONCE IV 03/02/21 13:45 03/02/21 13:46 DC 03/02/21 13:42 80 ML Sodium Chloride 500 ml @ 0 mls/hr Q0M ONCE IV 03/02/21 11:00 03/02/21 11:02 DC 03/02/21 11:11 500 MLS/HR Vital Signs/I&O 03/02/21 03/02/21 10:40 14:14 Temp 36.2 Pulse 114 98 Resp 20 20 B/P (MAP) 123/81 (95) 110/72 (95) Pulse Ox 99 99 Capillary Refill : Less Than 3 Seconds Blood Pressure Mean: 95 Progress Note : Progress Note Seen and evaluated. IV, labs and EKG ordered. Chest x-ray ordered. Monitor patient. Patient does not require aspirin or nitroglycerin as she is not having any chest pain and that is not part of her complaint. 1330: Patient has markedly elevated D-dimer and slightly elevated troponin. We will get CT angiogram of the chest to rule out pulmonary embolism as a cause for her tachycardia and heart strain/failure. BNP added. Patient is hungry and somewhat cantankerous but otherwise doing well. 1425: CT angiogram does show subsegmental PEs. Eliquis 10 mg p.o. ordered now and we will continue that twice daily x14 doses. Given her elevated troponin in the setting of elevated BNP and pulmonary emboli, patient will be admitted to the hospital, inpatient status. All findings concerns were discussed with the patient and family who agree with plan. ECG Initial ECG Impression Date: Mar 02, 2021 Initial ECG Impression Time: 10:43 Initial ECG Rate: 113 Initial ECG Comparisson: No Previous ECG Available Comment Sinus tachycardia with normal axis. No evidence of ST elevation [place]. No previous available comparison. Left bundle branch block noted. PVC noted. Interpreted by me. Diagnostic Imaging Diagonstic Imaging: Xray Plain Films/CT/US/NM/MRI: chest Comments [facility]. [place], [place] NAME: MOISES CAMARGO [facility] REC#: [id number] PT STATUS: REG ER : 1935 PHYSICIAN: ARACELI KIRKLAND MD ADMIT DATE: 03/02/21/ER Draft Date of Exam:03/02/21 CHEST 1 VIEW, AP/PA ONLY Indication: Chest pain. Time of exam: 11:11 AM No prior studies available for comparison. The heart is enlarged. Lungs are clear. No infiltrates are seen. There is no effusion or pneumothorax. There does appear to be some central congestive changes without failure. Impression: Cardiomegaly and central congestion. No overt failure is identified. Dictated on workstation # [id number] Dict: 03/02/21 1127 Trans: 03/02/21 1130 CVB [id number] Interpreted by: JIN CHANCE MD Electronically signed by: Jhonnstheron Imaging: CT Plain Films/CT/US/NM/MRI: chest Comments [facility] [place], [place] NAME: MOISES CAMARGO [facility] REC#: [id number] PT STATUS: REG ER : 1935 PHYSICIAN: ARACELI KIRKLAND MD ADMIT DATE: 03/02/21/ER Draft Date of Exam:03/02/21 CT ANGIO CHEST W PROCEDURE: CT angiography of the chest with contrast. TECHNIQUE: Multiple contiguous axial images were obtained through the chest after uneventful bolus administration of intravenous contrast. 3D reconstructed CTA MIP acquisitions were also performed. Auto Exposure Controls were utilized during the CT exam to meet ALARA standards for radiation dose reduction. INDICATION: Possible pulmonary embolism. No prior studies are available for comparison. Central pulmonary arteries are widely patent. Lobar arteries are patent. There does appear to be some filling defects within subsegmental pulmonary arteries to the lower lobes bilaterally. No saddle embolus was seen. No pericardial fluid. Small right and trace left pleural effusion. Lungs appear to be clear. Upper abdomen is unremarkable. IMPRESSION: 1. There appear to be subsegmental pulmonary emboli in bilateral lower lobes. No central emboli are detected. 2. Small right and trace left pleural effusion. Dictated on workstation # [id number] Dict: 03/02/21 1402 Trans: 03/02/21 1409 CVB [id number] Interpreted by: JIN CHANCE MD Electronically signed by: Departure Communication (Admissions) Time/Spoke to Admitting Phy: 13:25 Time/Spoke to Consulting Phy: 14:10 Impression Primary Impression: Bilateral pulmonary embolism Additional Impressions: Elevated troponin Acute heart failure Qualified Codes: I50.9 - Heart failure, unspecified Disposition: ADMITTED INPATIENT Condition: Stable Admissions Decision to Admit Reason: Admit from ER (General) Decision to Admit/Date: Mar 02, 2021 Time/Decision to Admit Time: 14:10 Departure-Patient Inst. Referrals: NO,LOCAL PHYSICIAN (PCP/Family) Primary Care Physician ARACELI KIRKLAND MD Mar 02, 2021 11:14
[2021-03-02 11:15] LABS: ALBUMIN 3.4 GM/DL (3.2-4.5); CHLORIDE 96 MMOL/L (98-107); SODIUM 128 MMOL/L (135-145)
[2021-03-02 11:16] LABS: CALCIUM 8.4 MG/DL (8.5-10.1)
[2021-03-02 11:17] LABS: GLUCOSE 140 MG/DL (70-105); TOTAL PROTEIN 6.6 GM/DL (6.4-8.2)
[2021-03-02 11:18] LABS: CARBON DIOXIDE 18 MMOL/L (21-32)
[2021-03-02 11:19] LABS: BILIRUBIN,TOTAL 0.5 MG/DL (0.1-1.0)
[2021-03-02 11:21] LABS: ALKALINE PHOSPHATASE 80 U/L (40-136); CREATININE SERUM 0.64 MG/DL (0.60-1.30); GFR ESTIMATED > 60; POTASSIUM 4.8 MMOL/L (3.6-5.0)
[2021-03-02 11:22] LABS: BUN/CREATININE RATIO 19
[2021-03-02 11:24] LABS: ALANINE AMINOTRANSFERASE 121 U/L (0-55); MAGNESIUM 1.8 MG/DL (1.6-2.4)
--- NOTE | 2021-03-02 11:30 | Diagnostic Imaging Report ---
Indication: Chest pain. Time of exam: 11:11 AM No prior studies available for comparison. The heart is enlarged. Lungs are clear. No infiltrates are seen. There is no effusion or pneumothorax. There does appear to be some central congestive changes without failure. Impression: Cardiomegaly and central congestion. No overt failure is identified. Dictated by: Dictated on workstation # [id number]
[2021-03-02] MEDS ORDERED: NS 100 ML (IVPB) BAG IV ONE (13:45)
[2021-03-02] MEDS ORDERED: IOHEXOL 350 MG/ML 100 ML (OMNIPAQUE 350) VIAL IV ONE (13:45)
[2021-03-02] MEDS ORDERED: HOLD METFORMIN - RECEIVED CONTRAST 20 ML VIAL IV SCH (13:45)
--- NOTE | 2021-03-02 14:11 | Diagnostic Imaging Report ---
PROCEDURE: CT angiography of the chest with contrast. TECHNIQUE: Multiple contiguous axial images were obtained through the chest after uneventful bolus administration of intravenous contrast. 3D reconstructed CTA MIP acquisitions were also performed. Auto Exposure Controls were utilized during the CT exam to meet ALARA standards for radiation dose reduction. INDICATION: Possible pulmonary embolism. No prior studies are available for comparison. Central pulmonary arteries are widely patent. Lobar arteries are patent. There does appear to be some filling defects within subsegmental pulmonary arteries to the lower lobes bilaterally. No saddle embolus was seen. No pericardial fluid. Small right and trace left pleural effusion. Lungs appear to be clear. Upper abdomen is unremarkable. IMPRESSION: 1. There appear to be subsegmental pulmonary emboli in bilateral lower lobes. No central emboli are detected. 2. Small right and trace left pleural effusion. Dictated by: Dictated on workstation # [id number]
[2021-03-02] MEDS ORDERED: APIXABAN 5 MG (ELIQUIS) TABLET PO ONE (14:30)
[2021-03-02 15:30] VITALS: BP 129/77
[2021-03-02] MEDS ORDERED: CATHETER FLUSH 10 ML SYR IV PRN (16:00)
[2021-03-02 20:14] VITALS: BP 111/71
[2021-03-02] MEDS: APIXABAN 5 MG (ELIQUIS) TABLET PO SCH (20:25)
[2021-03-02] MEDS: CATHETER FLUSH 10 ML SYR IV SCH (20:25)
[2021-03-02 23:38] VITALS: BP 128/80
[2021-03-03 00:21] VITALS: BP 146/75
[2021-03-03 03:08] VITALS: BP 117/74
[2021-03-03 05:31] LABS: BASOPHILS % (AUTO) 1 % (0-10); EOSINOPHILS # (AUTO) 0.1 10^3/uL (0.0-0.3); EOSINOPHILS % (AUTO) 1 % (0-10); HEMATOCRIT 36 % (35-52); HEMOGLOBIN 11.7 g/dL (11.5-16.0); LYMPHOCYTES # (AUTO) 1.6 10^3/uL (1.0-4.0); LYMPHOCYTES % (AUTO) 22 % (12-44); MEAN CORPUSCULAR HEMOGLOBIN 29 pg (25-34); MEAN CORPUSCULAR HGB CONC 32 g/dL (32-36); MEAN CORPUSCULAR VOLUME 90 fL (80-99); MEAN PLATELET VOLUME 9.5 fL (9.0-12.2); MONOCYTES # (AUTO) 0.8 10^3/uL (0.0-1.0); MONOCYTES % (AUTO) 10 % (0-12); NEUTROPHILS # (AUTO) 4.8 10^3/uL (1.8-7.8); NEUTROPHILS % (AUTO) 65 % (42-75); PLATELET COUNT 327 10^3/uL (130-400); WHITE BLOOD COUNT 7.3 10^3/uL (4.3-11.0)
[2021-03-03 05:41] LABS: CHLORIDE 96 MMOL/L (98-107); POTASSIUM 4.3 MMOL/L (3.6-5.0); SODIUM 129 MMOL/L (135-145)
[2021-03-03 05:42] LABS: CALCIUM 8.5 MG/DL (8.5-10.1)
[2021-03-03 05:43] LABS: GLUCOSE 120 MG/DL (70-105); TRIGLYCERIDES 54 MG/DL (<150); VLDL CHOLESTEROL 11 MG/DL (5-40)
[2021-03-03 05:44] LABS: CARBON DIOXIDE 21 MMOL/L (21-32)
[2021-03-03 05:47] LABS: CREATININE SERUM 0.66 MG/DL (0.60-1.30); GFR ESTIMATED > 60
[2021-03-03 05:48] LABS: BUN/CREATININE RATIO 20; CHOLESTEROL 105 MG/DL (< 200)
[2021-03-03 05:49] LABS: HDL CHOLESTEROL 29 MG/DL (40-60)
[2021-03-03] MEDS: CATHETER FLUSH 10 ML SYR IV SCH ×2 (06:00→08:15)
[2021-03-03 08:00] VITALS: BP 104/68
[2021-03-03] MEDS: APIXABAN 5 MG (ELIQUIS) TABLET PO SCH (08:14)
--- NOTE | 2021-03-03 09:41 | Consultation-Cardiology ---
HPI-Cardiology Cardiology Consultation Date of Consultation 03/03/21 Time Seen by Provider: 09:37 Indication: Pulmonary embolism HPI 85 years old lady with no significant past medical history, patient reported that she started to have cough for the past week then felt her heart beating fast, called her daughter and brought to the emergency room, she denied any chest pain or palpitation, no syncope or near syncopal episode, no recent travel or immobility. Work-up in the emergency room showed bilateral pulmonary embolism Home Medications & Allergies Allergies: Coded Allergies: No Allergy Information Available (Unverified , 04/04/17) Home Medication List Reviewed: Yes PMH-Mqbmxa-Efdwjz Hx Patient Social History Employed/Student: retired Recreational Drug Use: No Smoking Status: Never a Smoker Recent Hopitalizations: No Have you traveled recently?: No Alcohol Use?: No Past Medical History No significant past medical history Family Medical History Family Medical Hx Noncontributory Review of Systems-General Review of Systems Constitutional: see HPI; No chills, No fever EENTM: see HPI; No nose congestion, No throat pain Respiratory: see HPI, cough; No dyspnea on exertion, No hemoptysis, No orthopnea, No phlegm, No short of breath, No stridor, No wheezing, No other Cardiovascular: see HPI; No chest pain, No edema, No Hx of Intervention; palpitations; No syncope, No vascular heart diseas, No other Gastrointestinal: see HPI; No nausea, No vomiting Genitourinary: no symptoms reported, see HPI Musculoskeletal: no symptoms reported, see HPI Skin: no symptoms reported, see HPI Psychiatric/Neurological: No Symptoms Reported, See HPI All Other Systems Reviewed Negative Unless Noted: Yes Reviewed Test Results Reviewed Test Results Lab Laboratory Tests Test 03/02/21 10:55 03/02/21 13:00 03/03/21 05:25 Range/Units White Blood Count 5.8 7.3 4.3-11.0 10^3/uL Red Blood Count 3.89 4.00 3.80-5.11 10^6/uL Hemoglobin 11.3 L 11.7 11.5-16.0 g/dL Hematocrit 35 36 35-52 % Mean Corpuscular Volume 89 90 80-99 fL Mean Corpuscular Hemoglobin 29 29 25-34 pg Mean Corpuscular Hemoglobin Concent 33 32 32-36 g/dL Red Cell Distribution Width 13.9 13.9 10.0-14.5 % Platelet Count 352 327 130-400 10^3/uL Mean Platelet Volume 10.0 9.5 9.0-12.2 fL Immature Granulocyte % (Auto) 1 0 % Neutrophils (%) (Auto) 58 65 42-75 % Lymphocytes (%) (Auto) 28 22 12-44 % Monocytes (%) (Auto) 11 10 0-12 % Eosinophils (%) (Auto) 2 1 0-10 % Basophils (%) (Auto) 1 1 0-10 % Neutrophils # (Auto) 3.3 4.8 1.8-7.8 10^3/uL Lymphocytes # (Auto) 1.6 1.6 1.0-4.0 10^3/uL Monocytes # (Auto) 0.6 0.8 0.0-1.0 10^3/uL Eosinophils # (Auto) 0.1 0.1 0.0-0.3 10^3/uL Basophils # (Auto) 0.0 0.0 0.0-0.1 10^3/uL Immature Granulocyte # (Auto) 0.0 0.0 0.0-0.1 10^3/uL Prothrombin Time 16.2 H 12.2-14.7 SEC INR Comment 1.3 0.8-1.4 Activated Partial Thromboplast Time 28 24-35 SEC D-Dimer 1.69 H 0.00-0.49 UG/ML Sodium Level 128 L 129 L 135-145 MMOL/L Potassium Level 4.8 4.3 3.6-5.0 MMOL/L Chloride Level 96 L 96 L 98-107 MMOL/L Carbon Dioxide Level 18 L 21 21-32 MMOL/L Anion Gap 14 12 5-14 MMOL/L Blood Urea Nitrogen 12 13 7-18 MG/DL Creatinine 0.64 0.66 0.60-1.30 MG/DL Estimat Glomerular Filtration Rate > 60 > 60 BUN/Creatinine Ratio 19 20 Glucose Level 140 H 120 H 70-105 MG/DL Calcium Level 8.4 L 8.5 8.5-10.1 MG/DL Corrected Calcium 8.9 8.5-10.1 MG/DL Magnesium Level 1.8 1.6-2.4 MG/DL Total Bilirubin 0.5 0.1-1.0 MG/DL Aspartate Amino Transf (AST/SGOT) 101 H 5-34 U/L Alanine Aminotransferase (ALT/SGPT) 121 H 0-55 U/L Alkaline Phosphatase 80 40-136 U/L Myoglobin 89.2 10.0-92.0 NG/ML Troponin I 0.031 H 0.035 H 0.028 <0.028 NG/ML B-Type Natriuretic Peptide 1028.3 H <100.0 PG/ML Total Protein 6.6 6.4-8.2 GM/DL Albumin 3.4 3.2-4.5 GM/DL Triglycerides Level 54 <150 MG/DL Cholesterol Level 105 < 200 MG/DL LDL Cholesterol Direct 76 1-129 MG/DL VLDL Cholesterol 11 5-40 MG/DL HDL Cholesterol 29 L 40-60 MG/DL Physical Exam Physical Exam Vital Signs Vital Signs - First Documented 03/02/21 03/02/21 10:40 15:30 Temp 36.2 Pulse 114 Resp 20 B/P (MAP) 123/81 (95) Pulse Ox 99 O2 Delivery Room Air Capillary Refill : Less Than 3 Seconds Height, Weight, BMI Height: 5'3.00" Weight: 135lbs. 5.0oz. 61.060397jh; 21.09 BMI Method:Stated General Appearance: No Apparent Distress, WD/WN HEENT: PERRL/EOMI, Pharynx Normal Neck: Non Tender, Supple Respiratory: Lungs Clear, Normal Breath Sounds Cardiovascular: Systolic Murmur, Tachycardia Gastrointestinal: Non Tender, Soft Back: Normal Inspection, No CVA Tenderness, No Vertebral Tenderness Extremity: Normal Range of Motion, Non Tender Neurologic/Psychiatric: Alert, Oriented x3 Skin: Normal Color, Warm/Dry A/P-Cardiology Admission Diagnosis Bilateral pulmonary embolism Type II myocardial infarction Abnormal EKG Palpitation Assessment/Plan Acute bilateral pulmonary embolism, involving the lower lobes. Unprovoked, started on Eliquis 10 mg twice daily for 1 week then will switch to 5 mg twice daily. Hemodynamically stable Palpitation, sinus tachycardia secondary to pulmonary embolism. Continue to monitor Abnormal EKG with intraventricular conduction delay. Mild elevation in troponin level, type II MO secondary to PE, third set of troponin returned to normal Elevated BNP, will evaluate 2D echo LISSETH DUNCAN MD Mar 03, 2021 09:41
[2021-03-03] MEDS ORDERED: APIX5TAB PO (10:31)
--- NOTE | 2021-03-03 11:23 | Discharge Inst-Simple/Standard ---
Discharge Inst-Standard Discharge Medications New, Converted or Re-Newed RX: RX on Chart Patient Instructions/Follow Up Plan of Care/Instructions/FU: Please continue to take your medications as written. Please follow up with a primary care doctor and Dr Solares to follow up this hospital stay. Activity as Tolerated: Yes Discharge Diet: No Restrictions Return to The Hospital For: Chest pain, palpiations, shortness of breath, fever, confusion, fall especially if you hit your head, coughing up blood, blood when you go to the bathroom, if you feel you are getting worse. MICHELLE HARRISON MD Mar 03, 2021 11:23
[2021-03-03 12:00] VITALS: BP 113/77
--- NOTE | 2021-03-03 12:43 | Short Stay Summary-Hospitalist ---
History of Present Illness HPI/Chief Complaint Pt is an 85yoCF with no known past medical history who presented to the ER due to shortness of breath and heart palpitations for 2-3 days. She has not been to see a doctor in years so yesterday when she noticed it worsening she decied to seek evaluation in the ER. She was found to be quite tachycardiac with an elevated d-dimer and mild troponin elevation. She underwent CTA which revealed bilateral pulmonary emboli. She was admitted for further management. This morning sure reports feeling well and has no complaints. She is requesting discharge home. There had been reports of vaginal bleeding in the ER but when ex plicitly asked about this she denies it completely. We discussed that post menopausal bleeding is always abnormal and now with blood thinners if she noticed this she needed to be seen by a doctor for further evaluation. Source: patient Date Seen 03/03/21 Time Seen by a Provider: 10:45 Attending Physician Michelle Elliott MD PCP No,Local Physician Referring Physician Date of Admission Mar 02, 2021 at 14:26 Home Medications & Allergies Home Medications Reviewed patient Home Medication Reconciliation performed by pharmacy medication reconciliations photonic laboratory technician and/or nursing. Patients Allergies have been reviewed. Allergies Allergies Coded Allergies No Allergy Information Available (Unverified04/04/17) Past Mmrzrgd-Iewvxn-Jmsokp Hx Patient Social History Employed/Student: retired Tobacco Use?: No Smoking Status: Never a Smoker Substance use?: No Alcohol Use?: No Pt feels they are or have been: No Immunizations Up To Date First/Initial COVID19 Vaccinat: PT STATES BOTH VACCINES, Second COVID19 Vaccination Endy: PT STATES BOTH VACCINES, Seasonal Allergies Seasonal Allergies: No Current Status status: No status: No Advance Directives: No Communicates: Verbally Primary Language: Japanese Preferred Spoken Language: Japanese Is interpretation needed?: No Sensory deficits: Other Past Medical History Surgeries: Orthopedic (left hip fracture 03/2017) Pulmonary Embolism (03/02/21) Loss of Vision: Denies Blood Disorders: No Family Medical History Reviewed Nursing Family Hx No Pertinent Family Hx Review of Systems Constitutional: No chills, No fever EENTM: no symptoms reported Respiratory: see HPI, cough (chronic hacking and dry); No phlegm; short of breath Cardiovascular: see HPI Gastrointestinal: no symptoms reported Genitourinary: see HPI Musculoskeletal: no symptoms reported Skin: no symptoms reported Psychiatric/Neurological: No Symptoms Reported Physical Exam Physical Exam Vital Signs Vital Signs - First Documented 03/02/21 03/02/21 10:40 15:30 Temp 36.2 Pulse 114 Resp 20 B/P (MAP) 123/81 (95) Pulse Ox 99 O2 Delivery Room Air Capillary Refill : Less Than 3 Seconds Height, Weight, BMI Height: 5'3.00" Weight: 135lbs. 5.0oz. 61.113471ha; 21.09 BMI Method:Stated General Appearance: No Apparent Distress, WD/WN, Thin HEENT: PERRL/EOMI, Pharynx Normal; No Scleral Icterus (L) Neck: Normal Inspection, Supple Respiratory: Lungs Clear, No Accessory Muscle Use, No Respiratory Distress Cardiovascular: Regular Rate, Rhythm, No JVD, Systolic Murmur Gastrointestinal: Normal Bowel Sounds, Non Tender, Soft Extremity: Normal Capillary Refill, No Calf Tenderness, No Pedal Edema Neurologic/Psychiatric: Alert, Oriented x3, Normal Mood/Affect Skin: Normal Color, Warm/Dry Results Results/Procedures Labs Laboratory Tests 03/02/21 10:55 03/03/21 05:25 Patient resulted labs reviewed. Imaging: Reviewed Imaging Report Imaging [facility], [place] NAME: MOISES CAMARGO [facility] REC#: [id number] PT STATUS: ADM IN : 1935 PHYSICIAN: ARACELI KIRKLAND MD ADMIT DATE: 03/02/21 Signed Date of Exam:03/02/21 CT ANGIO CHEST W PROCEDURE: CT angiography of the chest with contrast. TECHNIQUE: Multiple contiguous axial images were obtained through the chest after uneventful bolus administration of intravenous contrast. 3D reconstructed CTA MIP acquisitions were also performed. Auto Exposure Controls were utilized during the CT exam to meet ALARA standards for radiation dose reduction. INDICATION: Possible pulmonary embolism. No prior studies are available for comparison. Central pulmonary arteries are widely patent. Lobar arteries are patent. There does appear to be some filling defects within subsegmental pulmonary arteries to the lower lobes bilaterally. No saddle embolus was seen. No pericardial fluid. Small right and trace left pleural effusion. Lungs appear to be clear. Upper abdomen is unremarkable. IMPRESSION: 1. There appear to be subsegmental pulmonary emboli in bilateral lower lobes. No central emboli are detected. 2. Small right and trace left pleural effusion. Dictated by: Dictated on workstation # [id number] Dict: 03/02/21 1402 Trans: 03/02/21 1533 CVB [id number] Interpreted by: JIN CHANCE MD Electronically signed by: JIN CHANCE MD 03/02/21 1533 Short Stay Diagnosis Discharge Diagnosis-Short Stay Admission Diagnosis Bilateral pulmonary emboli Final Discharge Diagnosis Bilateral pulmonary emboli Conclusion Plan Bilateral pulmonary emboli NSTEMI Elevated troponin likely due to PE, already resolved tolerating burden of PE well Started on Eliquis, requests paper script for discharge- in chart Discussed importance of outpatient follow up with a physician Cardiology consulted, appreciate recs DC home, advised to see Cardiology in 1-2 weeks and establish with a PCP List of local physicians given Diagnosis/Problems Diagnosis/Problems (1) Bilateral pulmonary embolism Status: Acute (2) Elevated troponin Status: Acute MICHELLE ELLIOTT MD Mar 03, 2021 12:43
[2021-03-03 16:45] VITALS: BP 113/77
--- NOTE | 2021-03-06 10:30 | Physician Query Clarification ---
PQ-CHF Specificity Admission Date: Mar 02, 2021 at 14:26 Discharge Date: Mar 03, 2021 at 17:09 Dr. Solares, The medical record reflects the following clinical scenario: History/Risk Factors: costa segmental PE, FL type 2 Clinical Findings: 2D echo - systolic moderate - severe reduced, EF 20 -25%, BNP - 1028.3 Treatment: f/u with optical fabricator, Eliquis 10 mg Question: Can you further specify the acuity &/or type of CHF per the clinical indicators above? Please document a response in the Progress Notes or Discharge Summary. 1. Acuity: Acute, Chronic or Acute on Chronic 2. Type: Systolic, Diastolic or Systolic & Diastolic 3. Unspecified: CHF cannot be further specified regarding type or acuity 4. Other, with explanation of clinical findings 5. Clinically undetermined, no explanation for clinical findings PHYSICIAN RESPONSE Acuity: Acute Type: Systolic Please remember a lack of response to the above will prompt a phone page by CDI/Coding staff. In responding to this query, please exercise your independent professional judgment. The purpose of this communication is to more accurately reflect the complexity of your patients condition. The fact that a question is asked does not imply that any particular answer is desired or expected. Thank you for your timely response to this clarification. Requestors name: Reginaldo THIS PHYSICIAN QUERY FORM IS A PERMANENT PART OF THE MEDICAL RECORD REGINALDO MAY Mar 06, 2021 10:30 LISSETH SOLARES MD Mar 06, 2021 16:14
== END 2021-03-03 17:09 | disposition home or self-care (01) | DRG 175 ==
LOC: EDUNIT# 10:38 → ER 10:40 → 4TH 14:26
PROVIDERS: ADMIT Family Medicine; ATTEND Family Medicine
DX: I26.94 Multiple subsegmental thrombotic pulmonary emboli without acute cor pulmonale (principal); I21.A1 Myocardial infarction type 2; I50.21 Acute systolic (congestive) heart failure; I44.7 Left bundle-branch block, unspecified; I49.3 Ventricular premature depolarization; N93.9 Abnormal uterine and vaginal bleeding, unspecified; Z79.82 Long term (current) use of aspirin; Z79.891 Long term (current) use of opiate analgesic
CPT/HCPCS: 36415; 71045; 71275; 80048; 80053; 80061; 83735; 83874; 83880; 84484; 85025; 85379; 85610; 85730; 93005; 93041

== ENCOUNTER 2021-03-09 14:47 | Observation (INO) | payer MEDICARE, MEDICAID ==
[2021-03-09] VITALS (7 sets, daily range): BP systolic 102–124; BP diastolic 61–77
[~2021-03-09] VITALS: Ht 157.5 cm; Wt 55.4 kg
[~2021-03-09 14:47] MED LIST changes: +APIX5TAB PO
[2021-03-09 15:35] LABS: BASOPHILS # (AUTO) 0.1 10^3/uL (0.0-0.1); BASOPHILS % (AUTO) 1 % (0-10); EOSINOPHILS # (AUTO) 0.1 10^3/uL (0.0-0.3); EOSINOPHILS % (AUTO) 2 % (0-10); HEMATOCRIT 39 % (35-52); HEMOGLOBIN 12.5 g/dL (11.5-16.0); LYMPHOCYTES # (AUTO) 1.8 10^3/uL (1.0-4.0); LYMPHOCYTES % (AUTO) 31 % (12-44); MEAN CORPUSCULAR HEMOGLOBIN 29 pg (25-34); MEAN CORPUSCULAR HGB CONC 32 g/dL (32-36); MEAN CORPUSCULAR VOLUME 91 fL (80-99); MEAN PLATELET VOLUME 9.5 fL (9.0-12.2); MONOCYTES # (AUTO) 0.7 10^3/uL (0.0-1.0); MONOCYTES % (AUTO) 12 % (0-12); NEUTROPHILS % (AUTO) 53 % (42-75); PLATELET COUNT 382 10^3/uL (130-400); WHITE BLOOD COUNT 5.7 10^3/uL (4.3-11.0)
[2021-03-09 15:40] LABS: ALBUMIN 3.3 GM/DL (3.2-4.5); CHLORIDE 95 MMOL/L (98-107); POTASSIUM 4.6 MMOL/L (3.6-5.0); SODIUM 131 MMOL/L (135-145)
[2021-03-09 15:41] LABS: CALCIUM 8.5 MG/DL (8.5-10.1); INR 1.5 (0.8-1.4); PROTHROMBIN TIME PATIENT 18.2 SEC (12.2-14.7)
[2021-03-09 15:43] LABS: GLUCOSE 116 MG/DL (70-105); TOTAL PROTEIN 6.4 GM/DL (6.4-8.2)
[2021-03-09 15:44] LABS: BILIRUBIN,TOTAL 0.4 MG/DL (0.1-1.0); CARBON DIOXIDE 25 MMOL/L (21-32)
[2021-03-09 15:46] LABS: ALKALINE PHOSPHATASE 66 U/L (40-136); CREATININE SERUM 0.69 MG/DL (0.60-1.30); GFR ESTIMATED > 60
[2021-03-09 15:47] LABS: BUN/CREATININE RATIO 13
[2021-03-09 15:49] LABS: ALANINE AMINOTRANSFERASE 61 U/L (0-55); MAGNESIUM 1.8 MG/DL (1.6-2.4)
--- NOTE | 2021-03-09 16:29 | Diagnostic Imaging Report ---
EXAMINATION: Chest 1 view. HISTORY: Chest pain. COMPARISON: 03/02/2021. FINDINGS: Stable enlargement of the cardiac silhouette. Calcifications of the aorta. Increasing bilateral pleural effusions with adjacent atelectasis or consolidation. Mild interstitial opacities within the lungs. No pneumothorax. The osseous structures are intact. Multiple external devices obscure evaluation of the chest. IMPRESSION: 1. Increasing bilateral pleural effusions with adjacent atelectasis or consolidation. 2. Cardiomegaly with mild interstitial opacities which could represent pulmonary edema or atypical infection. Dictated by: Dictated on workstation # [id number]
--- NOTE | 2021-03-09 16:50 | ED Chest Pain ---
General Chief Complaint: Chest Pain Stated Complaint: CP Nursing Triage Note: Pt wheeled into ER via wheelchair with complaint of intermittent chest pain today. Pt states that she was seen last weekend for the same reason here in our ER. She states that they determined she had CHF and spent one night in the hospital and was sent home. Pt states that its a constricting feeling as if she is getting short of breath and then stops and then again. Pain at a 5/10. Nursing Sepsis Screen: No Definite Risk Source: patient Exam Limitations: no limitations History of Present Illness Date Seen by Provider: Mar 09, 2021 Time Seen by Provider: 15:08 Initial Comments This 85-year-old woman presents to the emergency room with shortness of breath and chest pain. She was diagnosed with bilateral subsegmental pulmonary emboli a week ago. She was admitted to the hospital and started on Eliquis. She was subsequently diagnosed with heart failure with ejection fraction of 20 to 25% on an echo March 03. She was fitted with a LifeVest a few days ago and has it on at present. She developed chest pain a couple hours ago. The chest pain has since dissipated. She has had trouble breathing that has caused her significant discomfort in the last couple of days. She has been sleeping very little and is feeling agitated from that. She has a little bit of cough but denies fever. She is on diuretic therapy but she has had some increased swelling of her lower extremities in the past couple of days. 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 She does not have a primary care provider. She has very little health history. [place] and [place] help from her family. Her family is very supportive. Allergies and Home Medications Allergies Coded Allergies: No Allergy Information Available (Unverified , 04/04/17) Home Medications Apixaban 5 Mg Tablet, 5 MG PO BID TAKE 2 TABLETS BID X 7 DAYS, THEN 1 TABLET BID Prescribed by: MICHELLE HARRISON on 03/03/21 1031 Patient Home Medication List Home Medication List Reviewed: Yes Review of Systems Review of Systems Constitutional: weakness EENTM: No Symptoms Reported Respiratory: See HPI Cardiovascular: See HPI Gastrointestinal: No Symptoms Reported Genitourinary: No Symptoms Reported Musculoskeletal: no symptoms reported Skin: no symptoms reported Psychiatric/Neurological: See HPI Endocrine: No Symptoms Reported Hematologic/Lymphatic: No Symptoms Reported Past Wpwfazp-Bragyn-Ezyekb Hx Past Med/Social Hx: Reviewed and Corrections made Patient Social History Alcohol Use: Denies Use Recent Infectious Disease Expo: No Recent Hopitalizations: Yes Seasonal Allergies Seasonal Allergies: No Past Medical History Surgeries: Yes Orthopedic (Hip fracture) Respiratory: Yes Pulmonary Embolism Cardiac: No Neurological: No : No Genitourinary: No Gastrointestinal: No Musculoskeletal: No Endocrine: No HEENT: No Loss of Vision: Denies Cancer: No Psychosocial: No Integumentary: No Blood Disorders: No Family Medical History No Pertinent Family Hx Physical Exam Vital Signs Vital Signs - First Documented 03/09/21 03/09/21 14:47 14:50 Temp 37.0 Pulse 105 Resp 20 B/P (MAP) 103/71 (82) Pulse Ox 97 O2 Delivery Nasal Cannula O2 Flow Rate 2.0 FiO2 97 Capillary Refill : Less Than 3 Seconds Height, Weight, BMI Height: 5'3.00" Weight: 135lbs. 5.0oz. 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 Norm as Tested Skin: Normal Color, Warm/Dry Progress/Results/Core Measures Results/Orders Lab Results Laboratory Tests Test 03/09/21 14:50 03/09/21 15:16 Range/Units White Blood Count 5.7 4.3-11.0 10^3/uL Red Blood Count 4.26 3.80-5.11 10^6/uL Hemoglobin 12.5 11.5-16.0 g/dL Hematocrit 39 35-52 % Mean Corpuscular Volume 91 80-99 fL Mean Corpuscular Hemoglobin 29 25-34 pg Mean Corpuscular Hemoglobin Concent 32 32-36 g/dL Red Cell Distribution Width 14.4 10.0-14.5 % Platelet Count 382 130-400 10^3/uL Mean Platelet Volume 9.5 9.0-12.2 fL Immature Granulocyte % (Auto) 0 % Neutrophils (%) (Auto) 53 42-75 % Lymphocytes (%) (Auto) 31 12-44 % Monocytes (%) (Auto) 12 0-12 % Eosinophils (%) (Auto) 2 0-10 % Basophils (%) (Auto) 1 0-10 % Neutrophils # (Auto) 3.0 1.8-7.8 10^3/uL Lymphocytes # (Auto) 1.8 1.0-4.0 10^3/uL Monocytes # (Auto) 0.7 0.0-1.0 10^3/uL Eosinophils # (Auto) 0.1 0.0-0.3 10^3/uL Basophils # (Auto) 0.1 0.0-0.1 10^3/uL Immature Granulocyte # (Auto) 0.0 0.0-0.1 10^3/uL Prothrombin Time 18.2 H 12.2-14.7 SEC INR Comment 1.5 H 0.8-1.4 Activated Partial Thromboplast Time 33 24-35 SEC Sodium Level 131 L 135-145 MMOL/L Potassium Level 4.6 3.6-5.0 MMOL/L Chloride Level 95 L 98-107 MMOL/L Carbon Dioxide Level 25 21-32 MMOL/L Anion Gap 11 5-14 MMOL/L Blood Urea Nitrogen 9 7-18 MG/DL Creatinine 0.69 0.60-1.30 MG/DL Estimat Glomerular Filtration Rate > 60 BUN/Creatinine Ratio 13 Glucose Level 116 H 70-105 MG/DL Calcium Level 8.5 8.5-10.1 MG/DL Corrected Calcium 9.1 8.5-10.1 MG/DL Magnesium Level 1.8 1.6-2.4 MG/DL Total Bilirubin 0.4 0.1-1.0 MG/DL Aspartate Amino Transf (AST/SGOT) 48 H 5-34 U/L Alanine Aminotransferase (ALT/SGPT) 61 H 0-55 U/L Alkaline Phosphatase 66 40-136 U/L Myoglobin 57.3 10.0-92.0 NG/ML Troponin I 0.028 <0.028 NG/ML C-Reactive Protein High Sensitivity 1.11 H 0.00-0.50 MG/DL B-Type Natriuretic Peptide 2761.8 H <100.0 PG/ML Total Protein 6.4 6.4-8.2 GM/DL Albumin 3.3 3.2-4.5 GM/DL Influenza Type A (RT-PCR) Not Detected Not Detecte Influenza Type B (RT-PCR) Not Detected Not Detecte SARS-CoV-2 RNA (RT-PCR) Not Detected Not Detecte My Orders Orders - IMANI CUMMINS MD Cbc With Automated Diff (03/09/21 15:08) Magnesium (03/09/21 15:08) Chest 1 View, Ap/Pa Only (03/09/21 15:08) Ekg Tracing (03/09/21 15:08) Comprehensive Metabolic Panel (03/09/21 15:08) Myoglobin Serum (03/09/21 15:08) Protime With Inr (03/09/21 15:08) Partial Thromboplastin Time (03/09/21 15:08) O2 (03/09/21 15:08) Monitor-Rhythm Ecg Trace Only (03/09/21 15:08) Lipid Panel (03/10/21 06:00) Ed Iv/Invasive Line Start (03/09/21 15:08) Troponin I (03/09/21 15:08) Covid 19 Inhouse Test (03/09/21 15:26) Influenza A And B By Pcr (03/09/21 15:26) BNP (03/09/21 15:33) Hs C Reactive Protein (03/09/21 15:33) Furosemide Injection (Lasix Injection) (03/09/21 17:15) Aspirin Chewable Tablet (Baby Aspirin Ch (03/09/21 17:15) Vital Signs/I&O 03/09/21 03/09/21 03/09/21 14:47 14:47 14:50 Temp 37.0 Pulse 105 Resp 20 B/P (MAP) 103/71 (82) Pulse Ox 97 O2 Delivery Nasal Cannula Nasal Cannula Nasal Cannula O2 Flow Rate 2.0 2.00 2.00 FiO2 97 Blood Pressure Mean: 82 Progress Progress Note : Progress Note Work-up reveals exacerbation of heart failure with edema and effusions on chest x-ray and a rising BNP compared with prior. Patient is stable at this time but she is a high risk patient with current pulmonary emboli, decompensated heart failure, life vest usage, and older age. She also lives alone [place]. After discussing with patient, family, and Dr. Garcia, admission for diuresis and monitoring is felt appropriate. We will continue her Eliquis, losartan, and Coreg. We will add Lasix 40 mg now and twice daily, aspirin daily, and potassium chloride 10 mEq twice daily. Patient is agreeable to admission. She requests a full CODE STATUS. Initial ECG Impression Date: Mar 09, 2021 Initial ECG Impression Time: 15:03 Initial ECG Rate: 109 Initial ECG Rhythm: S.Tach Comment Sinus tachycardia with PVCs. No ST elevation or depression. When compared with prior there are no significant changes. No axis deviation. Diagnostic Imaging Diagonstic Imaging: Xray Plain Films/CT/US/NM/MRI: chest Comments Chest x-ray viewed by me and report reviewed. See report below: NAME: MOISES CAMARGO [facility] REC#: [id number] PT STATUS: REG ER : 1935 PHYSICIAN: IMANI CUMMINS MD ADMIT DATE: 03/09/21/ER Signed Date of Exam:03/09/21 CHEST 1 VIEW, AP/PA ONLY EXAMINATION: Chest 1 view. HISTORY: Chest pain. COMPARISON: 03/02/2021. FINDINGS: Stable enlargement of the cardiac silhouette. Calcifications of the aorta. Increasing bilateral pleural effusions with adjacent atelectasis or consolidation. Mild interstitial opacities within the lungs. No pneumothorax. The osseous structures are intact. Multiple external devices obscure evaluation of the chest. IMPRESSION: 1. Increasing bilateral pleural effusions with adjacent atelectasis or consolidation. 2. Cardiomegaly with mild interstitial opacities which could represent pulmonary edema or atypical infection. Dictated by: Dictated on workstation # [id number] Dict: 03/09/21 1623 Trans: 03/09/21 1632 [facility] [id number] Interpreted by: ANGI CHRISTIAN DO Electronically signed by: ANGI CHRISTIAN DO 03/09/21 1632 Departure Communication (Admissions) Time/Spoke to Admitting Phy: 17:00 Dr. Campos Time/Spoke to Consulting Phy: 16:55 Dr. Garcia Impression Primary Impression: Acute heart failure Qualified Codes: I50.9 - Heart failure, unspecified Additional Impressions: Bilateral pulmonary embolism Chest pain Qualified Codes: R07.9 - Chest pain, unspecified Disposition: ADMITTED INPATIENT Condition: Stable Admissions Decision to Admit Reason: Admit from ER (General) Decision to Admit/Date: Mar 09, 2021 Time/Decision to Admit Time: 16:55 Departure-Patient Inst. Referrals: NO,LOCAL PHYSICIAN (PCP/Family) Primary Care Physician Copy Copies To 1: LISSETH DUNCAN MD, JOSHUA T MD Mar 09, 2021 16:50
[2021-03-09] MEDS ORDERED: ASPIRIN 81 MG CHEW (CHILDREN'S ASA) PO ONE (17:15)
[2021-03-09] MEDS ORDERED: FUROSEMIDE 40 MG/4 ML INJ (LASIX) IVP ONE (17:15)
[2021-03-09] MEDS ORDERED: ONDANSETRON 4 MG/2 ML (SDV) Z0FRAN IVP PRN (18:00)
[2021-03-09] MEDS ORDERED: ACETAMINOPHEN 325 MG TABLET PO PRN (18:00)
[2021-03-09] MEDS ORDERED: FURO20TA4 PO (18:13)
[2021-03-09] MEDS ORDERED: LOSA25TA41 PO (18:13)
[2021-03-09] MEDS ORDERED: CARV3.122 PO (18:13)
[2021-03-09] MEDS: APIXABAN 5 MG (ELIQUIS) TABLET PO SCH ×2 (20:28→21:06)
[2021-03-10 00:06] VITALS: BP 108/56
[2021-03-10 04:22] VITALS: BP 105/57
[2021-03-10 05:16] LABS: BASOPHILS # (AUTO) 0.1 10^3/uL (0.0-0.1); BASOPHILS % (AUTO) 1 % (0-10); EOSINOPHILS # (AUTO) 0.2 10^3/uL (0.0-0.3); EOSINOPHILS % (AUTO) 4 % (0-10); HEMATOCRIT 35 % (35-52); HEMOGLOBIN 11.4 g/dL (11.5-16.0); LYMPHOCYTES # (AUTO) 1.8 10^3/uL (1.0-4.0); LYMPHOCYTES % (AUTO) 38 % (12-44); MEAN CORPUSCULAR HEMOGLOBIN 29 pg (25-34); MEAN CORPUSCULAR HGB CONC 32 g/dL (32-36); MEAN CORPUSCULAR VOLUME 90 fL (80-99); MEAN PLATELET VOLUME 9.3 fL (9.0-12.2); MONOCYTES # (AUTO) 0.6 10^3/uL (0.0-1.0); MONOCYTES % (AUTO) 13 % (0-12); NEUTROPHILS # (AUTO) 2.1 10^3/uL (1.8-7.8); NEUTROPHILS % (AUTO) 44 % (42-75); PLATELET COUNT 307 10^3/uL (130-400); WHITE BLOOD COUNT 4.8 10^3/uL (4.3-11.0)
[2021-03-10 05:22] LABS: CHLORIDE 94 MMOL/L (98-107); SODIUM 130 MMOL/L (135-145)
[2021-03-10 05:23] LABS: CALCIUM 8.2 MG/DL (8.5-10.1)
[2021-03-10 05:24] LABS: GLUCOSE 98 MG/DL (70-105); TRIGLYCERIDES 48 MG/DL (<150); VLDL CHOLESTEROL 10 MG/DL (5-40)
[2021-03-10 05:26] LABS: CARBON DIOXIDE 26 MMOL/L (21-32)
[2021-03-10 05:28] LABS: CREATININE SERUM 0.63 MG/DL (0.60-1.30); GFR ESTIMATED > 60
[2021-03-10 05:29] LABS: BUN/CREATININE RATIO 11; CHOLESTEROL 93 MG/DL (< 200)
[2021-03-10 05:30] LABS: HDL CHOLESTEROL 27 MG/DL (40-60)
[2021-03-10 07:30] VITALS: BP 112/72
--- NOTE | 2021-03-10 08:20 | Diagnostic Imaging Report ---
EXAMINATION: Chest radiograph, portable AP view. DATE: 03/10/2021 4:01 AM INDICATION: 85-year-old female, shortness of breath. History of bilateral pulmonary emboli. COMPARISON: March 09, 2021. FINDINGS: There is material overlying the patient which does limit the exam. Heart size and mediastinal contours are grossly unchanged given differences in patient positioning. There is no identified pneumothorax. There is blunting the right lateral costophrenic angle. There is nonspecific right mid and lower lung zone consolidation and streaky opacities in the left lung base. IMPRESSION: 1. Largely unchanged right mid and lower lung zone consolidation and streaky opacities in the left lung base with probable right pleural effusion. Dictated by: Dictated on workstation # [id number]
[2021-03-10] MEDS: ASPIRIN 81 MG CHEW (CHILDREN'S ASA) PO SCH (08:54)
[2021-03-10] MEDS: LOSARTAN 25 MG (COZAAR) TAB PO SCH (08:54)
[2021-03-10] MEDS: FUROSEMIDE 40 MG/4 ML INJ (LASIX) IVP SCH ×2 (08:54→17:39)
[2021-03-10] MEDS: APIXABAN 5 MG (ELIQUIS) TABLET PO SCH ×2 (08:54→20:20)
[2021-03-10] MEDS: KCL 10 MEQ TAB (MICRO K) PO SCH ×2 (08:54→17:39)
[2021-03-10 12:00] VITALS: BP 98/57
--- NOTE | 2021-03-10 12:28 | History & Physical-Hospitalist ---
History of Present Illness HPI/Chief Complaint Celeste Dye is an 85-year-old female with recently diagnosed heart failure with reduced ejection fraction and pulmonary emboli who presented with shortness of breath and chest pain. She reports that the chest pain was located in the center of her chest and did not radiate. She described it as pressure-like. The pain has resolved at this time. She also reports orthopnea. She has a worsening cough whenever she lays flat. She denies fevers and chills. She has not been sleeping well. Her shortness of breath has been worsening. Source: patient Exam Limitations: no limitations Date Seen 03/10/21 Time Seen by a Provider: 09:45 Attending Physician Criss Campos MD PCP No,Local Physician Referring Physician Date of Admission Mar 09, 2021 at 17:13 Home Medications & Allergies Home Medications Reviewed patient Home Medication Reconciliation performed by pharmacy medication reconciliations police crime scene technician and/or nursing. Patients Allergies have been reviewed. Allergies Allergies Coded Allergies No Allergy Information Available (Unverified04/04/17) Past Dqzgooc-Tpjnkt-Notjrv Hx Patient Social History Tobacco Use?: No Smoking Status: Never a Smoker Smokeless Tobacco Frequency: Never a User Use of E-Cig and/or Vaping dev: No Substance use?: No Alcohol Use?: No Pt feels they are or have been: No Immunizations Up To Date First/Initial COVID19 Vaccinat: 01/13/21 Second COVID19 Vaccination Endy: 01/13/21 Tetanus Booster (TDap): Unknown Hepatitis A: No Hepatitis B: No Seasonal Allergies Seasonal Allergies: No Current Status status: No status: No Advance Directives: No Communicates: Verbally Primary Language: Bel[place]an Preferred Spoken Language: Bel[place]an Is interpretation needed?: No Implanted or Applied Medical D: None Past Medical History Surgeries: Orthopedic (Hip fracture) Pulmonary Embolism Cardiomyopathy Loss of Vision: Denies Blood Disorders: No Family Medical History Reviewed Nursing Family Hx No Pertinent Family Hx Review of Systems Constitutional: weakness, weight loss EENTM: no symptoms reported Respiratory: cough, orthopnea, short of breath, wheezing Cardiovascular: chest pain Gastrointestinal: no symptoms reported Genitourinary: no symptoms reported Musculoskeletal: no symptoms reported Skin: no symptoms reported Psychiatric/Neurological: No Symptoms Reported Physical Exam Physical Exam Vital Signs Vital Signs - First Documented 03/09/21 03/09/21 14:47 14:50 Temp 37.0 Pulse 105 Resp 20 B/P (MAP) 103/71 (82) Pulse Ox 97 O2 Delivery Nasal Cannula O2 Flow Rate 2.0 FiO2 97 Capillary Refill : Less Than 3 Seconds Height, Weight, BMI Height: 5'3.00" Weight: 135lbs. 5.0oz. [id number]; 24.67 BMI Method:Stated General Appearance: No Apparent Distress, WD/WN HEENT: PERRL/EOMI, Pharynx Normal Neck: Normal Inspection, Supple Respiratory: No Respiratory Distress, Decreased Breath Sounds Cardiovascular: No Murmur, Tachycardia (regular rhythm) Gastrointestinal: Normal Bowel Sounds, Non Tender, Soft Extremity: Normal Inspection, Non Tender, Pedal Edema Neurologic/Psychiatric: Alert, Oriented x3, No Motor/Sensory Deficits, Normal Mood/Affect Skin: Normal Color, Warm/Dry Results Results/Procedures Labs Laboratory Tests 03/09/21 14:50 03/10/21 05:03 Patient resulted labs reviewed. Imaging: Reviewed Imaging Report Assessment/Plan Admission Diagnosis Acute on chronic heart failure with reduced ejection fraction Admission Status: Observation Assessment and Plan Acute on chronic heart failure with reduced ejection fraction Bilateral subsegmental pulmonary emboli Chest pain Troponin remains normal limits BNP elevated 2700 Chest xray with increased effusions, pulmonary edema Recent echo reportedly with EF 20-25% Wearing LifeVest Cardiology consulted, appreciate assistance Started on IV Lasix No supplemental oxygen requirement Continue Coreg and Losartan Continue Eliquis Diagnosis/Problems Diagnosis/Problems (1) Acute heart failure Status: Acute Qualifiers: Heart failure type: systolic Qualified Codes: I50.21 - Acute systolic (congestive) heart failure (2) Bilateral pulmonary embolism Status: Acute (3) Chest pain Status: Acute Qualifiers: Chest pain type: unspecified Qualified Codes: R07.9 - Chest pain, unspecified Clinical Quality Measures AMI/AHF: ASA po Prior to arrival: CRISS Eller MD Mar 10, 2021 12:28
--- NOTE | 2021-03-10 14:37 | Consultation-Cardiology ---
HPI-Cardiology Cardiology Consultation: Date of Consultation 03/10/21 Time Seen by a Provider: 13:45 Date of Admission Attending Physician Criss Campos MD Admitting Physician No,Local Physician Consulting Physician NICHOLAS CONTRERAS MD, MA, FACP, FACC, FSCAI, CCDS HPI: Chief Complaint: CC: Shortness of breath HPI 85 yo woman with increasing shortness of breath for several days prior to admission, also mild leg swelling. No cp or palp or syncope. Some gen malaise and weakness present. No fever or chills. No wgt gain or wgt loss in the recent past Review of Systems-Cardiology Review of Systems Constitutional: As described under HPI Eyes: No vision change Ears/Nose/Throat: No ear discharge, No nasal drainage, No recent hearing loss Respiratory: As described under HPI Cardiovascular: As described under HPI Gastrointestinal: No diarrhea, No nausea, No vomiting Genitourinary: No dysuria, No hematuria, No urine frequency changes Musculoskeletal: back pain (chroni) Skin: No rash, No ulcerations Psychiatric/Neurological: No seizure, No focal weakness, No syncope NZT-Oovvea-Qxajpr Hx Patient Social History Smoking Status: Never a Smoker Have you traveled recently?: No Alcohol Use?: No Pt feels they are or have been: No Past Medical History PMH As described under Assessment. Family Medical History Family Medical History: She does not report fam h/o early CAD or SCD Allergies and Home Medications Allergies Coded Allergies: No Allergy Information Available (Unverified , 04/04/17) Home Medications Apixaban 5 Mg Tablet, 5 MG PO BID TAKE 2 TABLETS BID X 7 DAYS, THEN 1 TABLET BID Prescribed by: MICHELLE HARRISON on 03/03/21 1031 Last Action: Last Taken Edited Carvedilol 3.125 Mg Tablet, 3.125 MG PO BID, (Reported) Last Action: New Order Furosemide 20 Mg Tablet, 10 MG PO DAILY, (Reported) Last Action: New Order Losartan Potassium 25 Mg Tablet, 25 MG PO DAILY, (Reported) Last Action: New Order Patient Home Medication List Home Medication List Reviewed: Yes Physical Exam-Cardiology Physical Exam Vital Signs/I&O 03/10/21 03/10/21 03/10/21 03/10/21 04:22 07:00 07:30 08:00 Temp 36.2 37.2 Pulse 90 108 107 Resp 20 20 B/P (MAP) 105/57 (73) 112/72 (85) Pulse Ox 97 98 98 O2 Delivery Room Air Room Air Room Air FiO2 97 03/10/21 03/10/21 12:00 12:46 Temp 37.4 Pulse 96 97 Resp 20 B/P (MAP) 98/57 (71) Pulse Ox 98 O2 Delivery Room Air 03/10/21 00:00 Intake Total 440 ml Output Total 300 ml Balance 140 ml Capillary Refill : Less Than 3 Seconds Constitutional: AAO x 3, well-developed, well-nourished HEENT: EOMI, hearing is well preserved Neck: carotid pulses are 2 + bilaterally, with good upstrokes Respiratory: No accessory muscle use; other (fair to good air entry, diminished a the bases) Cardiovascular: regular rate-rhythm, S1 and S2, systolic murmur (soft MIGDALIA at card base) Gastrointestinal: No tender; soft; No guarding, No rebound; audible bowel sounds Extremities: No clubbing, No cyanosis, No significant edema Neurologic/Psychiatric: oriented x 3, other (moves all limbs equally) Skin: No rash on exposed areas, No ulcerations on exposed areas Data Review Labs Laboratory Tests 03/09/21 14:50: White Blood Count 5.7, Red Blood Count 4.26, Hemoglobin 12.5, Hematocrit 39, Mean Corpuscular Volume 91, Mean Corpuscular Hemoglobin 29, Mean Corpuscular Hem oglobin Concent 32, Red Cell Distribution Width 14.4, Platelet Count 382, Mean Platelet Volume 9.5, Immature Granulocyte % (Auto) 0, Neutrophils (%) (Auto) 53, Lymphocytes (%) (Auto) 31, Monocytes (%) (Auto) 12, Eosinophils (%) (Auto) 2, Basophils (%) (Auto) 1, Neutrophils # (Auto) 3.0, Lymphocytes # (Auto) 1.8, Monocytes # (Auto) 0.7, Eosinophils # (Auto) 0.1, Basophils # (Auto) 0.1, Immature Granulocyte # (Auto) 0.0, Prothrombin Time 18.2H, INR Comment 1.5H, Activated Partial Thromboplast Time 33, Sodium Level 131L, Potassium Level 4.6, Chloride Level 95L, Carbon Dioxide Level 25, Anion Gap 11, Blood Urea Nitrogen 9, Creatinine 0.69, Estimat Glomerular Filtration Rate > 60, BUN/Creatinine Ratio 13, Glucose Level 116H, Calcium Level 8.5, Corrected Calcium 9.1, Magnesium Level 1.8, Total Bilirubin 0.4, Aspartate Amino Transf (AST/SGOT) 48H, Alanine Aminotransferase (ALT/SGPT) 61H, Alkaline Phosphatase 66, Myoglobin 57.3, Troponin I 0.028, C-Reactive Protein High Sensitivity 1.11H, B-Type Natriuretic Peptide 2761.8H, Total Protein 6.4, Albumin 3.3 03/09/21 15:16: Influenza Type A (RT-PCR) Not Detected, Influenza Type B (RT-PCR) Not Detected, SARS-CoV-2 RNA (RT-PCR) Not Detected 03/10/21 05:03: White Blood Count 4.8, Red Blood Count 3.90, Hemoglobin 11.4L, Hematocrit 35, Mean Corpuscular Volume 90, Mean Corpuscular Hemoglobin 29, Mean Corpuscular Hemoglobin Concent 32, Red Cell Distribution Width 14.4, Platelet Count 307, Mean Platelet Volume 9.3, Immature Granulocyte % (Auto) 0, Neutrophils (%) (Auto) 44, Lymphocytes (%) (Auto) 38, Monocytes (%) (Auto) 13H, Eosinophils (%) (Auto) 4, Basophils (%) (Auto) 1, Neutrophils # (Auto) 2.1, Lymphocytes # (Auto) 1.8, Monocytes # (Auto) 0.6, Eosinophils # (Auto) 0.2, Basophils # (Auto) 0.1, Immature Granulocyte # (Auto) 0.0, Sodium Level 130L, Potassium Level 4.0, Chloride Level 94L, Carbon Dioxide Level 26, Anion Gap 10, Blood Urea Nitrogen 7, Creatinine 0.63, Estimat Glomerular Filtration Rate > 60, BUN/Creatinine Ratio 11, Glucose Level 98, Calcium Level 8.2L, Troponin I < 0.028, Triglyc erides Level 48, Cholesterol Level 93, LDL Cholesterol Direct 64, VLDL Cholesterol 10, HDL Cholesterol 27L, Procalcitonin 0.03 Laboratory Tests 03/09/21 14:50 03/10/21 05:03 A/P-Cardiology Assessment/Admission Diagnosis Multifactorial shortness of breath: ac systolic CHF and recent PE (see below) Ac systolic CHF due to dilated cardiomyopathy of undetermined etiology - Echo of 03/03/20 (Dr Solares): LVEF 20-25%, diffuse hypokinesis of LV, severe MR & TR, mod AI, enlargement of LA (mod) and RV (mild), PASP 55-60 mmHg - Life Vest in place since 03/04/21 - Minimal troponin elevation during this hospitalization: Type II NC due to decompensated CHF Ac pulmonary embolism in February 2021 - CT chest on 03/02/21: subsegmental pulmonary emboli in bilateral lower lobes. No central emboli are detected. Small right and trace left pleural effusion. Discussion and Recomendations * iv diuretics for CHF * Monitor and replenish electrolytes * Continue bb and FANY-inhib / ARB for dilated cardiomyopathy, as tolerated by bp * Continue treatment for PE Clinical Quality Measures AMI/AHF: ASA po Prior to arrival: NICHOLAS Pérez MD FACP FAC CCDS Mar 10, 2021 14:37
[2021-03-10] MEDS ORDERED: CALCIUM CARBONATE 500 MG (TUMS) TAB.CHEW PO PRN ×2 (15:00→20:00)
[2021-03-10 16:05] VITALS: BP 101/65
[2021-03-10 20:02] VITALS: BP 110/64
[2021-03-11 00:03] VITALS: BP 94/53
[2021-03-11 04:26] VITALS: BP 96/56
[2021-03-11 08:00] VITALS: BP 113/72
[2021-03-11] MEDS: LOSARTAN 25 MG (COZAAR) TAB PO SCH (08:14)
[2021-03-11] MEDS: FUROSEMIDE 40 MG/4 ML INJ (LASIX) IVP SCH ×2 (08:14→09:50)
[2021-03-11] MEDS: ASPIRIN 81 MG CHEW (CHILDREN'S ASA) PO SCH (08:14)
[2021-03-11] MEDS: KCL 10 MEQ TAB (MICRO K) PO SCH (08:14)
[2021-03-11] MEDS: APIXABAN 5 MG (ELIQUIS) TABLET PO SCH (08:14)
[2021-03-11] MEDS ORDERED: FUROSEMIDE 40 MG (LASIX) TAB PO SCH (11:00)
[2021-03-11] MEDS ORDERED: APIX5TAB PO (11:13)
[2021-03-11] MEDS ORDERED: POTA10TA6 PO (11:53)
[2021-03-11] MEDS ORDERED: ASPI81TA64 PO (11:53)
[2021-03-11] MEDS ORDERED: FURO40TA4 PO (11:53)
--- NOTE | 2021-03-11 11:55 | Discharge Inst-Simple/Standard ---
Discharge Inst-Standard Discharge Medications New, Converted or Re-Newed RX: Transmitted to Pharmacy Patient Instructions/Follow Up Plan of Care/Instructions/FU: Please continue to take your medications as written. Please follow up with your primary care doctor to follow up this hospital stay. Activity as Tolerated: Yes Discharge Diet: No Restrictions Return to The Hospital For: Chest pain, shortness of breath, leg swelling, if you feel you are getting worse. MICHELLE HARRISON MD Mar 11, 2021 11:55
[2021-03-11 12:00] VITALS: BP 93/50
--- NOTE | 2021-03-11 12:14 | Discharge Summary ---
Diagnosis/Chief Complaint Date of Admission Mar 09, 2021 at 17:13 Date of Discharge Discharge Date: Mar 11, 2021 Admission Diagnosis Acute on chronic heart failure with reduced ejection fraction Primary Care No,Local Physician Discharge Diagnosis (1) Acute heart failure Status: Acute (2) Bilateral pulmonary embolism Status: Acute (3) Chest pain Status: Acute Discharge Summary Discharge Physical Exam Allergies: Coded Allergies: No Allergy Information Available (Unverified , 04/04/17) Vitals & I&Os Vital Signs Date Time Temp Pulse Resp B/P (MAP) Pulse Ox O2 Delivery O2 Flow Rate FiO2 03/11/21 12:49 107 03/11/21 12:00 37.0 18 93/50 (64) 92 Room Air 03/10/21 08:00 97 03/09/21 14:50 2.00 General Appearance: No Apparent Distress, WD/WN Cardiovascular: Regular Rate, Rhythm, No Murmur Neurologic/Psychiatric: Alert, Oriented x3 Hospital Course Pt was admitted due to acutely decompensated systolic heart failure. She was diuresed and did well with this. She has a known EF of 20% and has a LifeVest in placed already. Cardiology was consulted to assist with management. She had an uneventful hospital stay and was discharged home in stable and improved condition at her request. She is to follow up with cardiology in 1 week to follow up this hospital stay. Labs (last 24 hrs) Patient resulted labs reviewed. Imaging: Reviewed Imaging Report Discussion & Recommendations Discharge Planning: >30 minutes discharge planning Discharge Home Medications: Active Scripts Active Klor-Con 10 (Potassium Chloride) 10 Meq Tablet.er 10 Meq PO BID WITH MEALS Furosemide 40 Mg Tablet 40 Mg PO DAILY@0900,1600 Children's Aspirin (Aspirin) 81 Mg Tab.chew 81 Mg PO DAILY Reported Eliquis (Apixaban) 5 Mg Tablet 5 Mg PO BID Carvedilol 3.125 Mg Tablet 3.125 Mg PO BID Losartan Potassium 25 Mg Tablet 25 Mg PO DAILY Instructions to patient/family Please see electronic discharge instructions given to patient. Clinical Quality Measures AMI/AHF: ASA po Prior to arrival: No Problem Qualifiers (1) Acute heart failure: Heart failure type: systolic Qualified Codes: I50.21 - Acute systolic (congestive) heart failure (2) Chest pain: Chest pain type: unspecified Qualified Codes: R07.9 - Chest pain, unspecified MICHELLE HARRISON MD Mar 11, 2021 12:14
--- NOTE | 2021-03-11 12:33 | Progress Note - Cardiology ---
Cardiology SOAP Progress Note Subjective: Shortness of breath and malaise much improved No cp or palp or syncope No n/v/d No focal weakness No swelling Objective: I&O/Vital Signs 03/11/21 03/11/21 03/11/21 03/11/21 01:00 04:26 07:00 08:00 Temp 35.6 Pulse 87 94 107 Resp 18 B/P (MAP) 96/56 (69) Pulse Ox 95 O2 Delivery Room Air Room Air 03/11/21 08:00 Temp 36.6 Pulse 109 Resp 16 B/P (MAP) 113/72 (86) Pulse Ox 93 O2 Delivery Room Air 03/11/21 00:00 Intake Total 2000 ml Balance 2000 ml Weight (Pounds): 135 Weight (Ounces): 5.0 Weight (Calculated Kilograms): 61.403340 Constitutional: AAO x 3, well-developed, well-nourished Respiratory: No accessory muscle use; other (fair to good air entry, diminished a the bases) Cardiovascular: regular rate-rhythm, S1 and S2, systolic murmur (soft MIGDALIA at card base) Gastrointestional: No tender; soft; No guarding, No rebound; audible bowel sounds Extremities: No clubbing, No cyanosis, No significant edema Neurologic/Psychiatric: oriented x 3, other (moves all limbs equally) Skin: No rash on exposed areas, No ulcerations on exposed areas Results/Procedures: Labs Laboratory Tests 03/09/21 14:50 03/10/21 05:03 A/P: Assessment: Multifactorial shortness of breath: ac systolic CHF and recent PE (see below) Ac systolic CHF due to dilated cardiomyopathy of undetermined etiology - Echo of 03/03/20 (Dr Solares): LVEF 20-25%, diffuse hypokinesis of LV, severe MR & TR, mod AI, enlargement of LA (mod) and RV (mild), PASP 55-60 mmHg - Life Vest in place since 03/04/21 - Minimal troponin elevation during this hospitalization: Type II NE due to decompensated CHF Ac pulmonary embolism in February 2021 - CT chest on 03/02/21: subsegmental pulmonary emboli in bilateral lower lobes. No central emboli are detected. Small right and trace left pleural effusion. Plan: * Symptoms much improved. Change diuretics to oral. Continue other meds * Continue treatment for PE * Discussed with Dr Elliott of the Hospitalist dona * Close outpt cardiac f/u advised with her regulatory affairs director Dr Solares Clinical Quality Measures AMI/AHF: ASA po Prior to arrival: NICHOLAS Pérez MD [facility] CCDS Mar 11, 2021 12:33
[2021-03-11 13:45] VITALS: BP 93/50
== END 2021-03-11 13:45 | disposition home or self-care (01) ==
LOC: EDUNIT# 14:47 → ER 14:48 → 4TH 17:13
PROVIDERS: ADMIT Internal Medicine; ATTEND Internal Medicine
DX: R07.9 Chest pain, unspecified (principal); R06.02 Shortness of breath; I50.21 Acute systolic (congestive) heart failure; I26.99 Other pulmonary embolism without acute cor pulmonale; R00.0 Tachycardia, unspecified; I49.3 Ventricular premature depolarization; I45.89 Other specified conduction disorders; I25.2 Old myocardial infarction; I42.9 Cardiomyopathy, unspecified; Z79.01 Long term (current) use of anticoagulants; Z79.899 Other long term (current) drug therapy
CPT/HCPCS: 71045 ×2; 80048; 80053; 80061; 83735; 83874; 83880; 84145; 84484 ×2; 85025 ×2; 85610; 85730; 86141; 87636; 93005; 93041; 96374; 99284; G0378; 36415

== ENCOUNTER 2021-03-27 08:57 | Day surgery (SDC) | payer MEDICARE, MEDICAID ==
[2021-03-27] VITALS (8 sets, daily range): BP systolic 83–110; BP diastolic 48–62
[~2021-03-27] VITALS: Ht 160 cm; Wt 52.2 kg
[~2021-03-27 08:57] MED LIST changes: +ASPI81TA64 PO; +CARV3.122 PO; +FURO20TA4 PO; +FURO40TA4 PO; +LOSA25TA41 PO; +POTA10TA6 PO
[2021-03-27] MEDS ORDERED: NS IV 1000 ML 1,000 ML IV SCH ×3 (09:00→14:00)
[2021-03-27] MEDS ORDERED: LIDOCAINE 1% INJ 20 ML 20 ML VIAL ONE (09:00)
[2021-03-27] MEDS ORDERED: NS IV 1000 ML 1,000 ML ONE (09:00)
[2021-03-27] MEDS ORDERED: HEParin (CATH LAB) 2,000 ML IV ONE (09:00)
--- NOTE | 2021-03-27 09:48 | Diagnostic Imaging Report ---
INDICATION: CHF, elevated Troponin. TECHNIQUE: Single view chest 9:20 AM. CORRELATION STUDY: 03/10/2021 FINDINGS: External fibrillator jacket obscures detail. Heart size borderline enlarged. Vasculature is very slightly prominent without overt failure. Calcification of the aortic arch. Lung steven are generally clear. IMPRESSION: 1. Borderline heart size and vasculature but without overt failure. Overall improved from prior. Dictated by: Dictated on workstation # [id number]
[2021-03-27 09:55] LABS: HEMATOCRIT 40 % (35-52); MEAN CORPUSCULAR HEMOGLOBIN 29 pg (25-34); MEAN CORPUSCULAR HGB CONC 33 g/dL (32-36); MEAN CORPUSCULAR VOLUME 89 fL (80-99); MEAN PLATELET VOLUME 9.5 fL (9.0-12.2); PLATELET COUNT 294 10^3/uL (130-400); WHITE BLOOD COUNT 5.5 10^3/uL (4.3-11.0)
[2021-03-27 10:13] LABS: INR 1.2 (0.8-1.4); PROTHROMBIN TIME PATIENT 15.2 SEC (12.2-14.7)
[2021-03-27 10:23] LABS: ALANINE AMINOTRANSFERASE 16 U/L (0-55); ALBUMIN 3.7 GM/DL (3.2-4.5); ALKALINE PHOSPHATASE 57 U/L (40-136); BILIRUBIN,TOTAL 0.6 MG/DL (0.1-1.0); BUN/CREATININE RATIO 16; CALCIUM 9.3 MG/DL (8.5-10.1); CARBON DIOXIDE 29 MMOL/L (21-32); CHLORIDE 94 MMOL/L (98-107); CHOLESTEROL 138 MG/DL (< 200); CREATININE SERUM 0.68 MG/DL (0.60-1.30); GFR ESTIMATED > 60; GLUCOSE 104 MG/DL (70-105); HDL CHOLESTEROL 37 MG/DL (40-60); POTASSIUM 3.9 MMOL/L (3.6-5.0); SODIUM 132 MMOL/L (135-145); TOTAL PROTEIN 7.6 GM/DL (6.4-8.2); TRIGLYCERIDES 61 MG/DL (<150); VLDL CHOLESTEROL 12 MG/DL (5-40)
[2021-03-27] MEDS ORDERED: MIDAZOLAM 5 MG/5 ML (VERSED) VIAL ONE (11:05)
[2021-03-27] MEDS ORDERED: fentaNYL INJ 100 MCG/2 ML AMP ONE (11:05)
[2021-03-27] MEDS ORDERED: HEParin 1000 UNIT/ML (10ML VIAL) FOR BOLUS ONE (11:29)
[2021-03-27] MEDS ORDERED: VERAPAMIL 5 MG/2 ML (CALAN) VIAL IV ONE (11:29)
[2021-03-27] MEDS ORDERED: NITRO DRIP 25000 MCG/D5W 250 ML IV ONE (11:44)
--- NOTE | 2021-03-27 13:53 | Discharge Inst-Post CATH ---
Discharge Inst-CATH/EP Problems Reviewed?: Yes Post Cardiac Cath/EP D/C Inst Follow Up/Plan Appointment with Dr. Solares's office in 2 to 4 weeks <b>CARDIAC CATH/EP PROCEDURE DISCHARGE INSTRUCTIONS</b> ACTIVITY * Go Home directly and rest. * Limit activity of the leg (or wrist if it was used) for 7 days including aer obics, swimming, jogging, bicycling, etc. * Restrict stair-climbing for 7 days if possible, if not, climb up with your non-cath leg, then bring together on the same step. * Avoid lifting, pushing, pulling or excessive movement of the affected extremi ty for 7 days. * Customary sexual activity may be resumed after 2 days-use caution not to use a position that strains or causes pain to the affected extremity. * No driving for 24 hours. * NO SMOKING. * Avoid straining for bowel movements for 7 days. * Gentle walking on level ground is allowed. * Returning to work will depend on the type of procedure and the results. Your doctor will discuss this with you. CALL YOUR DOCTOR FOR ANY OF THE FOLLOWING: *If bleeding from the puncture site occurs- Apply gentle pressure to site with clean cloth and call your doctor or EMS. * If a knot or lump forms under the skin, increases in size, or causes pain. * If bruising appears to be worsening or moving further down your leg instead of disappearing. * Temperature above 101 F. CARE OF YOUR GROIN INCISION; * Bruising or purple discoloration of the skin near the puncture site is common. * You may shower only, no bathtub bathing for 5 days. Be careful to avoid slipping as your leg may feel stiff. * If a closure device was used on your femoral artery, please see the attached guide regarding care of the device and your leg. * Leave dressing on FOR 24 hours. CARE OF YOUR WRIST INCISION; * Bruising or purple discoloration of the skin near the puncture site is common. * You may shower. * DO NOT submerge wrist. * Leave dressing on FOR 24 hours. LISSETH SOLARES MD Mar 27, 2021 13:53
--- NOTE | 2021-03-27 14:44 | Conscious Sedation/ASA ---
Conscious Sedation Pre-Proced Time 14:44 ASA Score 3 For ASA 3 and 4: Consider anesthesia and medical clearance. Also, for patients with a history of failed moderate sedation consider anesthesia. Airway Lungs Heart ASA score ASA 1: a normal healthy patient ASA 2: a patient with a mild systemic disease (mid diabetes, controlled hypertension, obesity x ASA 3: a patient with a severe systemic disease that limits activity (angina, COPD, prior Myocardial infarction) ASA 4: a patient with an incapacitating disease that is a constant threat to life (CHF, renal failure) ASA 5: a moribund patient not expected to survive 24 hrs. (ruptured aneurysm) ASA 6: a declared brain- patient whose organs are being harvested. For emergent operations, add the letter E after the classification Mallampati Classification Grade 3 Sedation Plan Analgesia, Amnesia, Plan communicated to team members, Discussed options with patient/fam, Discussed risks with patient/fam The patient is an appropriate candidate to undergo the planned procedure, sedation, and anesthesia. The patient immediately re-assessed prior to indication. LISSETH DUNCAN MD Mar 27, 2021 2:44 pm
--- NOTE | 2021-03-27 14:47 | Cardiac Cath Report ---
Cardiac Cath Report Physician (s)/Business Account Manager (s) Physician LISSETH DUNCAN MD Pre-Procedure Diagnosis Pre-Procedure Diagnosis: Coronary artery disease Post-Procedure Note Procedure Start Date: Mar 27, 2021 Name of Procedure: Left heart catheterization Left ventriculogram Findings/Procedure Note PROCEDURE NOTE: 85 years old lady with congestive heart failure, scheduled for coronary angiogram to rule out underlying coronary artery disease. After explaining the procedure to the patient, all pros and cons were explained, all questions were answered. The patient signed the consent and then she was placed on the cardiac catheterization laboratory. Groin was prepped SL fashion local anesthesia was used. Sheath placed in the right radial artery, [place] catheter advanced to the left ventricular cavity, left ventriculogram was done, pullback LV to aorta I then intubated the right and left coronary system, angiogram was done. At the end of the procedure the sheath was removed. Vascular band deployed FINDINGS: Hemodynamics LV 90/10, end-diastolic pressure of 10 Aorta 86/51 mean of 25 ANATOMY: Left Main is free of obstructive disease Left Anterior Descending has mild coronary artery disease Left Circumflex has mild disease nonobstructive disease Right Coronary Artery has mild disease nonobstructive disease LV Gram was done showing normal left ventricular size, systolic function est imated to be mildly reduced, ejection fraction 45 to 50% CONCLUSION: 1. Mild coronary artery disease nonobstructive disease 2. Mild left ventricular hypokinesia, systolic function is mildly reduced, ejection fraction 45 to 50% DISCUSSION AND RECOMMENDATION: Medical therapy is recommended no intervention is needed Anesthesia Type: Conscious Sedation Estimated blood loss (mL): 10 ml Contrast Amount: 40 ml Total Radiation Dose: 139 mGy Post-Procedure Diagnosis Post-operative diagnosis: Chest pain Coronary artery disease Hypertension Hyperlipidemia LISSETH DUNCAN MD Mar 27, 2021 2:47 pm
== END 2021-03-27 15:00 ==
LOC: CATH 08:57 → SDC 12:02 → CATH 15:00
PROVIDERS: ATTEND Internal Medicine Cardiovascular Disease
DX: I25.10 Atherosclerotic heart disease of native coronary artery without angina pectoris (principal); I10 Essential (primary) hypertension; I50.9 Heart failure, unspecified; E78.5 Hyperlipidemia, unspecified; Z79.01 Long term (current) use of anticoagulants; Z79.899 Other long term (current) drug therapy
CPT/HCPCS: 71045; 80053; 80061; 85027; 85610; 85730; 87081; 93458; C1894; 36415

== ENCOUNTER → 2021-06-10 | Outpatient (CLI) | payer MEDICARE, MEDICAID | LOC: CARD 11:30 | PROVIDERS: ATTEND Internal Medicine Cardiovascular Disease | DX: I11.9 Hypertensive heart disease without heart failure (principal); I08.0 Rheumatic disorders of both mitral and aortic valves; I25.10 Atherosclerotic heart disease of native coronary artery without angina pectoris | CPT/HCPCS: 93306 ==

== ENCOUNTER → 2021-08-15 | Outpatient (CLI) | payer MEDICARE, MEDICAID ==
[~2021-08-15] MED LIST changes: +POTA-160 PO; -POTA10TA6 PO
== END ==
LOC: LABNPT 06:33
PROVIDERS: ATTEND Nurse Practitioner Family
DX: Z01.812 Encounter for preprocedural laboratory examination (principal); Z20.822 Contact with and (suspected) exposure to COVID-19
CPT/HCPCS: 87636

== ENCOUNTER 2022-02-01 08:01 | Emergency (ER) | payer MEDICARE, MEDICAID ==
[~2022-02-01] VITALS: Ht 160 cm; Wt 54.3 kg
--- NOTE | 2022-02-01 08:20 | ED Back Pain ---
General Chief Complaint: Back Problems Stated Complaint: FALL/BACK PAIN Source of Information: Patient Exam Limitations: No Limitations History of Present Illness Date Seen by Provider: February 01, 2022 Time Seen by Provider: 08:01 Initial Comments The patient presents to the ER by private conveyance with her son and chief complaint that on Thursday she had a fall while on her porch landing on her backside. She says her right knee and hip have been giving her trouble for some time. She has had her left hip replaced she believes by Dr. Polanco. She is not having any pain in her hip or knee now. She says she was feeling better doctoring up a skin tear on her left forearm but her pain in her mid back is getting worse rather than better. She is not having loss of control of bowel or bladder, saddle anesthesia, falls due to weakness, numbness or tingling. She has not had prior back fractures or surgeries. She is on Eliquis. She is known to Dr. Rhonda Meyer and Dr. Solares. She has a pacemaker in place. Allergies and Home Medications Allergies Coded Allergies: No Allergy Information Available (Unverified , 04/04/17) Patient Home Medication List Home Medication List Reviewed: Yes Apixaban (Eliquis) 5 Mg Tablet, 5 MG PO BID, (Reported) Entered as Reported by: RHONDA HARDY on 03/11/21 111 Aspirin (Children's Aspirin) 81 Mg Tab.chew, 81 MG PO DAILY Prescribed by: MICHELLE HARRISON on 03/11/21 115 Carvedilol (Carvedilol) 3.125 Mg Tablet, 3.125 MG PO BID, (Reported) Entered as Reported by: LILA BAILON on 03/09/211812 Furosemide (Furosemide) 40 Mg Tablet, 40 MG PO DAILY@0900,1600 Prescribed by: MICHELLE HARRISON on 03/11/21 115 Losartan Potassium (Losartan Potassium) 25 Mg Tablet, 25 MG PO DAILY, (Reported) Entered as Reported by: LILA BAILON on 03/09/211812 Potassium Chloride (Klor-Con 10) 10 Meq Tablet.er, 10 MEQ PO BID WITH MEALS Prescribed by: MICHELLE HARRISON on 03/11/21 1153 Review of Systems Constitutional: No chills, No diaphoresis EENTM: No ear discharge, No ear pain Respiratory: No cough, No short of breath Cardiovascular: No chest pain, No edema Gastrointestinal: No abdominal pain, No nausea, No vomiting Genitourinary: No discharge, No dysuria Control/STD Prophylaxis: None Musculoskeletal: back pain; No joint pain All Other Systems Reviewed Negative Unless Noted: Yes Past Vbmacsj-Oeuual-Upwxyc Hx Patient Social History Tobacco Use?: No Use of E-Cig and/or Vaping dev: No Immunizations Up To Date Tetanus Booster (TDap): Unknown Seasonal Allergies Seasonal Allergies: No Past Medical History Surgeries: Yes Orthopedic, Tubal Ligation Respiratory: Yes Pulmonary Embolism Cardiac: No Cardiomyopathy Neurological: No Genitourinary: No Gastrointestinal: No Musculoskeletal: No Endocrine: No HEENT: No Loss of Vision: Denies Cancer: No Psychosocial: No Integumentary: No Blood Disorders: No Family Medical History No Pertinent Family Hx Physical Exam Vital Signs Vital Signs - First Documented 02/01/22 08:04 Temp 36.2 Pulse 81 Resp 16 B/P (MAP) 120/65 (83) Pulse Ox 98 O2 Delivery Room Air Capillary Refill : Height, Weight, BMI Height: 5'3.00" Weight: 135lbs. 5.0oz. 61.692380uc; 20.39 BMI Method:Stated General Appearance: WD/WN, Mild Distress HEENT: PERRL/EOMI, Pharynx Normal, Moist Mucous Membranes Neck: Full Range of Motion, Normal Inspection, Non Tender, Supple Cardiovascular: Regular Rate, Rhythm, No Edema, Normal Peripheral Pulses Respiratory: No Accessory Muscle Use, No Respiratory Distress Gastrointestinal: Non Tender, Soft Back: Normal Inspection, Vertebral Tenderness (Mid thoracic T8-T10 midline tenderness with some muscle spasms bilateral) Extremity: Normal Capillary Refill, Normal Inspection Neurologic/Psychiatric: Alert, Oriented x3 Skin: Normal Color, Warm/Dry Progress/Results/Core Measures Results/Orders My Orders Orders - PAULETTE EATON Ct Head/Cervical Spine Wo (02/01/22 08:14) Ct Thoracic/Lumbar Spine Wo (02/01/22 08:14) Acetaminophen Tablet (Tylenol Tablet) (02/01/22 09:15) Acetaminophen Tablet (Tylenol Tablet) (02/01/22 09:15) Medications Given in ED Current Medications Medications Dose Ordered Sig/Evan Route Start Time Stop Time Status Last Admin Dose Admin Acetaminophen 1,000 mg ONCE ONCE PO 02/01/22 09:15 02/01/22 09:16 DC 02/01/22 09:17 1,000 MG Vital Signs/I&O 02/01/22 08:04 Temp 36.2 Pulse 81 Resp 16 B/P (MAP) 120/65 (83) Pulse Ox 98 O2 Delivery Room Air Progress Progress Note #1: Time: 08:19 Progress Note TConcern for vertebral fracture. Plan to get CT of cervical, thoracic and lumbar spine. She is 4 days out however since she uses Eliquis we will go ahead and get a CT of her head. Progress Note #2: Time: 09:25 Progress Note Initially the patient declined anything for pain but after laying on the cot for a while she decided she would prefer something so we ordered 1000 g of Tylenol which she is happy with. We did a try repositioning and distraction therapy with television. Diagnostic Imaging Diagonstic Imaging: CT Plain Films/CT/US/NM/MRI: c-spine, head Comments NAME: MOISES CAMARGO [facility] REC#: [id number] PT STATUS: REG ER : 1935 PHYSICIAN: PAULETTE EATON MD ADMIT DATE: 02/01/22/ER Signed Date of Exam:02/01/22 CT HEAD/CERVICAL SPINE WO PROCEDURE: CT head and CT cervical spine without contrast. TECHNIQUE: Multiple contiguous axial images were obtained through the brain and cervical spine without the use of intravenous contrast. Sagittal and coronal reformations through the cervical spine were then performed. Auto Exposure Controls were utilized during the CT exam to meet ALARA standards for radiation dose reduction. DATE: February 01, 2022. COMPARISON: CT head August 29, 2018. INDICATION: 86-year-old female, head and neck pain. Injury. FINDINGS: There is no identified skull fracture. The ventricles and cerebral spinal fluid spaces are of normal size and configuration for the patient's age. There is no mass effect or midline shift. There is no acute intracranial hemorrhage. There is no abnormal extra-axial fluid collection. The visualized portions of the paranasal sinuses, mastoid air cells and middle ears are well aerated. There is no identified facet joint subluxation or dislocation. There are facet degenerative changes of the cervical spine. There is reversal of the normal cervical lordosis. There is no asymmetric widening of the cervical disc spaces. There is no prominent prevertebral soft tissue swelling. There is arthritis at the C1-C2 articulation. CT is limited for assessment of disc pathology as well as additional non-bony causes of pathology in the spinal canal. There are multilevel disc degenerative changes of the cervical spine. There is no identified acute fracture of the cervical spine. The visualized portions of the lung apices are clear. There are bilateral carotid vascular calcifications. IMPRESSION: 1. No identified acute intracranial abnormality. 2. No identified acute fracture of the cervical spine. 3. Multilevel disc and facet degenerative changes of the cervical spine. Dictated by: Dictated on workstation # [id number] Dict: 02/01/2245 Trans: 02/01/22920 [facility] [id number] Interpreted by: OSIRIS EASTMAN MD Electronically signed by: OSIRIS EASTMAN MD 02/01/22920 Reviewed: Reviewed by Me Diagonstic Imaging: CT Plain Films/CT/US/NM/MRI: other (thoracolumbar spine) Comments NAME: MOISES CAMARGO [facility] REC#: [id number] PT STATUS: REG ER : 1935 PHYSICIAN: PAULETTE EATON MD ADMIT DATE: 02/01/22/ER Draft Date of Exam:02/01/22 CT THORACIC/LUMBAR SPINE WO PROCEDURE: CT thoracic and lumbar spine without contrast. TECHNIQUE: Multiple contiguous axial images were obtained through the thoracic and lumbar spine without the use of intravenous contrast. Sagittal and coronal reformations were then performed. All CT scans use one or more of the following dose optimizing techniques: automated exposure control, MA and/or KvP adjustment based on a patient size and exam type, or iterative reconstruction. Date: February 01, 2022. Indication: 86-year-old female, mid and lower back pain after fall. Comparison: CT chest March 02, 2021. Findings: There is a mild thoracic levocurvature. Anterior posterior alignment of the thoracic spine is unremarkable. There is no identified acute fracture of the thoracic spine. There are multilevel mild disc degenerative changes of the thoracic spine. CT is limited for assessment of disc pathology as well as additional non-bony causes of pathology in the spinal canal. There is mild dependent atelectasis in the right and left lower lobes. There are atherosclerotic calcifications. There is grade 1 anterolisthesis of L4 on L5 measuring 5.5 mm. There is a superior endplate concavity of L2 without a visible fracture line. There is an inferior endplate concavity of L3 without a visible fracture line. There is severe disc height loss at L2-L3. There is mild disc height loss at L3-L4 and L4-L5. There are moderate facet degenerative changes bilaterally at L3-L4, L4-L5, and L5-S1. There are mild bilateral sacroiliac degenerative changes. There does appear to be severe spinal stenosis at L4-L5 relating to diffuse disc bulge and facet arthropathy. There also appears to be high-grade foraminal narrowing at this level. Impression: 1. Superior endplate concavity of L2 which is unchanged since prior CT chest on November 02, 2020 which may reflect a Schmorl's node or remote prior compression deformity. 2. Inferior endplate concavity of L3 which is not in the included [id number] on prior study and is technically age indeterminate. Compression deformity. 3. No identified acute fracture of the thoracic spine. 4. Multilevel degenerative changes of the thoracic and lumbar spine. Findings are most notable at L4-L5. Dictated on workstation # [id number] Dict: 02/01/22 0850 Trans: 02/01/22 0936 [facility] [id number] Interpreted by: OSIRIS EASTMAN MD Electronically signed by: Departure Impression Primary Impression: Fall Qualified Codes: W19.XXXA - Unspecified fall, initial encounter Additional Impression: Thoracic back pain Qualified Codes: M54.6 - Pain in thoracic spine Disposition: 01 HOME, SELF-CARE Condition: Stable Departure-Patient Inst. Decision time for Depature: 10:20 Referrals: RHONDA MEYER DO NO,LOCAL PHYSICIAN (PCP) Primary Care Physician Patient Instructions: Upper Back Pain Add. Discharge Instructions: Drink plenty of fluids and use Tylenol 1000 mg every 8 hours as needed for pain. You can use topical creams or Salonpas patches. I also recommend lidocaine patches. Heat applications to your back can be beneficial. If you are not seeing some improvement over the next week then call [facility] physical therapy at [phone] and request follow-up evaluation and management through physical therapy. If your symptoms are persisting for more than 2 weeks then you need to follow-up with your primary care doctor for help managing. Return to the ER promptly if you experience new loss of control of your bowel or bladder, weakness resulting in falls or numbness between your legs. All discharge instructions reviewed with patient and/or family. Voiced understanding. PAULETTE EATON February 01, 2022 08:20
[2022-02-01] MEDS ORDERED: ACETAMINOPHEN 500 MG TAB (TYLENOL) PO ONE (09:15)
[2022-02-01] MEDS ORDERED: ACETAMINOPHEN 500 MG TAB (TYLENOL) ONE (09:15)
--- NOTE | 2022-02-01 09:17 | Diagnostic Imaging Report ---
PROCEDURE: CT head and CT cervical spine without contrast. TECHNIQUE: Multiple contiguous axial images were obtained through the brain and cervical spine without the use of intravenous contrast. Sagittal and coronal reformations through the cervical spine were then performed. Auto Exposure Controls were utilized during the CT exam to meet ALARA standards for radiation dose reduction. DATE: February 01, 2022. COMPARISON: CT head August 29, 2018. INDICATION: 86-year-old female, head and neck pain. Injury. FINDINGS: There is no identified skull fracture. The ventricles and cerebral spinal fluid spaces are of normal size and configuration for the patient's age. There is no mass effect or midline shift. There is no acute intracranial hemorrhage. There is no abnormal extra-axial fluid collection. The visualized portions of the paranasal sinuses, mastoid air cells and middle ears are well aerated. There is no identified facet joint subluxation or dislocation. There are facet degenerative changes of the cervical spine. There is reversal of the normal cervical lordosis. There is no asymmetric widening of the cervical disc spaces. There is no prominent prevertebral soft tissue swelling. There is arthritis at the C1-C2 articulation. CT is limited for assessment of disc pathology as well as additional non-bony causes of pathology in the spinal canal. There are multilevel disc degenerative changes of the cervical spine. There is no identified acute fracture of the cervical spine. The visualized portions of the lung apices are clear. There are bilateral carotid vascular calcifications. IMPRESSION: 1. No identified acute intracranial abnormality. 2. No identified acute fracture of the cervical spine. 3. Multilevel disc and facet degenerative changes of the cervical spine. Dictated by: Dictated on workstation # [id number]
--- NOTE | 2022-02-01 09:37 | Diagnostic Imaging Report ---
PROCEDURE: CT thoracic and lumbar spine without contrast. TECHNIQUE: Multiple contiguous axial images were obtained through the thoracic and lumbar spine without the use of intravenous contrast. Sagittal and coronal reformations were then performed. All CT scans use one or more of the following dose optimizing techniques: automated exposure control, MA and/or KvP adjustment based on a patient size and exam type, or iterative reconstruction. Date: February 01, 2022. Indication: 86-year-old female, mid and lower back pain after fall. Comparison: CT chest March 02, 2021. Findings: There is a mild thoracic levocurvature. Anterior posterior alignment of the thoracic spine is unremarkable. There is no identified acute fracture of the thoracic spine. There are multilevel mild disc degenerative changes of the thoracic spine. CT is limited for assessment of disc pathology as well as additional non-bony causes of pathology in the spinal canal. There is mild dependent atelectasis in the right and left lower lobes. There are atherosclerotic calcifications. There is grade 1 anterolisthesis of L4 on L5 measuring 5.5 mm. There is a superior endplate concavity of L2 without a visible fracture line. There is an inferior endplate concavity of L3 without a visible fracture line. There is severe disc height loss at L2-L3. There is mild disc height loss at L3-L4 and L4-L5. There are moderate facet degenerative changes bilaterally at L3-L4, L4-L5, and L5-S1. There are mild bilateral sacroiliac degenerative changes. There does appear to be severe spinal stenosis at L4-L5 relating to diffuse disc bulge and facet arthropathy. There also appears to be high-grade foraminal narrowing at this level. Impression: 1. Superior endplate concavity of L2 which is unchanged since prior CT chest on November 02, 2020 which may reflect a Schmorl's node or remote prior compression deformity. 2. Inferior endplate concavity of L3 which is not in the included [id number] on prior study and is technically age indeterminate. Compression deformity. 3. No identified acute fracture of the thoracic spine. 4. Multilevel degenerative changes of the thoracic and lumbar spine. Findings are most notable at L4-L5. Dictated by: Dictated on workstation # [id number]
[2022-02-01 10:35] VITALS: BP 145/74
== END 2022-02-01 10:30 | disposition home or self-care (01) ==
LOC: EDUNIT# 08:01 → ER 08:04
DX: M54.6 Pain in thoracic spine (principal); Z96.642 Presence of left artificial hip joint; Z86.711 Personal history of pulmonary embolism; Z79.01 Long term (current) use of anticoagulants; Z95.0 Presence of cardiac pacemaker; W19.XXXA Unspecified fall, initial encounter; Y92.008 Other place in unspecified non-institutional (private) residence as the place of occurrence of the external cause
CPT/HCPCS: 70450; 72125; 72128; 72131

== ENCOUNTER 2022-05-25 18:20 | Emergency (ER) | payer MEDICARE, MEDICAID ==
[~2022-05-25] VITALS: Ht 157.5 cm; Wt 55.0 kg
--- NOTE | 2022-05-25 18:51 | ED Back Pain ---
General Chief Complaint: Back Problems Stated Complaint: BACK PAIN Source of Information: Patient, Family (son) Exam Limitations: No Limitations History of Present Illness Date Seen by Provider: May 25, 2022 Time Seen by Provider: 18:32 Initial Comments Patient to ER by private conveyance with her son and chief complaint for the past 2 days she has had an ache on her right back and right flank. No history of kidney stones. She is concerned she has a UTI. She has no urinary frequency, hesitancy, dysuria. She does have chronic back pain. She is been using Tylenol which takes the pain away very soon as it wears off the pain is still there. She has not had any inciting incident or trauma. No falls. She follows with Dr. Rhonda Cardozo for primary care and Dr. Solares for cardiology. Allergies and Home Medications Allergies Coded Allergies: No Allergy Information Available (Unverified , 04/04/17) Patient Home Medication List Home Medication List Reviewed: Yes Apixaban (Eliquis) 5 Mg Tablet, 5 MG PO BID, (Reported) Entered as Reported by: RHONDA HARDY on 03/11/21 1113 Aspirin (Children's Aspirin) 81 Mg Tab.chew, 81 MG PO DAILY Prescribed by: MICHELLE HARRISON on 03/11/21 115 Carvedilol (Carvedilol) 3.125 Mg Tablet, 3.125 MG PO BID, (Reported) Entered as Reported by: LILA BAILON on 03/09/211812 Furosemide (Furosemide) 40 Mg Tablet, 40 MG PO DAILY@0900,1600 Prescribed by: MICHELLE HARRISON on 03/11/21 115 Losartan Potassium (Losartan Potassium) 25 Mg Tablet, 25 MG PO DAILY, (Reported) Entered as Reported by: LILA BAILON on 03/09/211812 Potassium Chloride (Klor-Con 10) 10 Meq Tablet.er, 10 MEQ PO BID WITH MEALS Prescribed by: MICHELLE HARRISON on 03/11/21 1153 Review of Systems Constitutional: No chills, No diaphoresis, No fever EENTM: No ear discharge, No ear pain Respiratory: No cough, No dyspnea on exertion Cardiovascular: No chest pain; Hx of Intervention; No palpitations Gastrointestinal: No abdominal pain, No constipation, No diarrhea, No nausea Genitourinary: see HPI; No discharge, No dysuria : No All Other Systems Reviewed Negative Unless Noted: Yes Past Vzuzthk-Lbpvli-Axejpc Hx Patient Social History Tobacco Use?: No Use of E-Cig and/or Vaping dev: No Immunizations Up To Date Tetanus Booster (TDap): Unknown First/Initial COVID19 Vaccinat: 12/05/20 Second COVID19 Vaccination Endy: 01/03/21 Seasonal Allergies Seasonal Allergies: No Past Medical History Surgery/Hospitalization HX: PMH;DENIES. SURGERIES;LEFT HIP SURGERY AND PACEMAKER IMPLANTED 12/2021. Surgeries: Yes Orthopedic, Tubal Ligation Respiratory: Yes Pulmonary Embolism Cardiac: No Cardiomyopathy Neurological: No Genitourinary: No Gastrointestinal: No Musculoskeletal: No Endocrine: No HEENT: No Loss of Vision: Denies Cancer: No Psychosocial: No Integumentary: No Blood Disorders: No Family Medical History No Pertinent Family Hx Physical Exam Vital Signs Capillary Refill : Height, Weight, BMI Height: 5'3.00" Weight: 135lbs. 5.0oz. 61.084174kf; 21.00 BMI Method:Stated General Appearance: No Apparent Distress, WD/WN HEENT: PERRL/EOMI, TMs Normal, Normal ENT Inspection, Pharynx Normal, Moist Mucous Membranes Neck: Full Range of Motion, Normal Inspection Cardiovascular: Regular Rate, Rhythm, Normal Peripheral Pulses Respiratory: No Accessory Muscle Use, No Respiratory Distress Gastrointestinal: Normal Bowel Sounds, Non Tender, Soft Back: Normal Inspection, No Vertebral Tenderness, CVA Tenderness (R) (Positive Ramiro's punch right side) Neurologic/Psychiatric: Alert, Oriented x3 Progress/Results/Core Measures Results/Orders Lab Results Laboratory Tests Test 05/25/22 18:55 Range/Units Urine Color YELLOW Urine Clarity CLEAR Urine pH 6.5 5-9 Urine Specific Liberal 1.015 L 1.016-1.022 Urine Protein NEGATIVE NEGATIVE Urine Glucose (UA) NEGATIVE NEGATIVE Urine Ketones NEGATIVE NEGATIVE Urine Nitrite NEGATIVE NEGATIVE Urine Bilirubin NEGATIVE NEGATIVE Urine Urobilinogen 0.2 < = 1.0 MG/DL Urine Leukocyte Esterase 1+ H NEGATIVE Urine RBC (Auto) TRACE-I H NEGATIVE Urine RBC 0-2 /HPF Urine WBC 2-5 /HPF Urine Crystals NONE /LPF Urine Bacteria NEGATIVE /HPF Urine Casts PRESENT /LPF Urine Hyaline Casts 0-2 H /LPF Urine Mucus NEGATIVE /LPF Urine Culture Indicated NO My Orders Orders - ANGELITO,PAULETTE J Ua Culture If Indicated (05/25/22 18:48) Progress Progress Note #1: Time: 18:51 Progress Note Plan to collect a urine specimen. Aseptic vital signs. Progress Note #2: Time: 19:33 Progress Note Urinalysis is not terribly convincing with 2-5 white cells per high-power field however she is having some symptoms so we will go ahead and put her on Macrobid. We did offer some hydrocodone but she said her pain was not that bad and she wo uld continue to take Tylenol. She is following up with her primary care doctor in 4 days which would be perfect timing if she is not seeing improvement. Departure Impression Primary Impression: UTI (urinary tract infection) Qualified Codes: N30.00 - Acute cystitis without hematuria Additional Impression: Lumbago Qualified Codes: M54.50 - Low back pain, unspecified Disposition: 01 HOME, SELF-CARE Condition: Stable Departure-Patient Inst. Decision time for Depature: 19:34 Referrals: NO,LOCAL PHYSICIAN (PCP/Family) Primary Care Physician Patient Instructions: Urinary Tract Infection, Adult ED, Low Back Pain ED Add. Discharge Instructions: Macrobid 1 capsule twice a day for a week. If not seeing improvement in 3 to 4 days then keep follow-up appointment with your primary care doctor to reassess your pain. Continue to use Tylenol 1000 mg every 8 hours as needed for pain. Topical creams such as icy hot, Biofreeze etc. You can also use heating pads to help with your pain. Back brace such as you can get from [facility], [facility] etc. can be helpful for back pain. All discharge instructions reviewed with patient and/or family. Voiced understanding. Scripts Nitrofurantoin Monohyd/M-Cryst (Macrobid 100 mg Capsule) 100 Mg Capsule 1 TAB PO BID for 7 Days, #14 CAP 0 Refills Prov: PAULETTE EATON 05/25/22 PAULETTE EATON May 25, 2022 18:51
[2022-05-25 19:03] LABS: BILIRUBIN,URINE NEGATIVE (NEGATIVE); CLARITY,URINE CLEAR; COLOR,URINE YELLOW; GLUCOSE, URINE (UA) NEGATIVE (NEGATIVE); KETONES,URINE NEGATIVE (NEGATIVE); LEUKOCYTE ESTERASE ,URINE 1+ (NEGATIVE); NITRITE,URINE NEGATIVE (NEGATIVE); PH,URINE 6.5 (5-9); PROTEIN,URINE NEGATIVE (NEGATIVE)
[2022-05-25 19:13] LABS: BACTERIA,URINE NEGATIVE /HPF; HYALINE CASTS, URINE 0-2 /LPF; RBC,URINE 0-2 /HPF
[2022-05-25] MEDS ORDERED: NITR-65 PO (19:36)
[2022-05-25 19:43] VITALS: BP 147/91
== END 2022-05-25 19:43 | disposition home or self-care (01) ==
LOC: EDUNIT# 18:20 → ER 18:31
DX: N39.0 Urinary tract infection, site not specified (principal)
CPT/HCPCS: 81000; 99282

== ENCOUNTER → 2023-05-25 | Outpatient (CLI) | payer MEDICARE, MEDICAID ==
[~2023-05-25] MED LIST changes: +NITR-65 PO
== END ==
LOC: CARD 14:01
PROVIDERS: ATTEND Physician Assistant
DX: I11.9 Hypertensive heart disease without heart failure (principal); I08.0 Rheumatic disorders of both mitral and aortic valves; I25.10 Atherosclerotic heart disease of native coronary artery without angina pectoris
CPT/HCPCS: 93306